=== PATIENT | female | born 1955 | race African-American/Black ===

== ENCOUNTER → 2017-02-09 | Outpatient (CLI) | payer MEDICARE, OTHER ==
[~2017-02-09] MED LIST: AMLO5TAB4 PO; BENA20TA48 PO; CANA100T PO; COSO10 BOTH EYES; ERGO500014 PO; EZET10TA3 PO; FOLI-49 PO; HYDR25TA6 PO; IBUP-1542 PO; METF500T4 PO; REPA2TAB6 PO; SITA100T8 PO; TRAV2.5D BOTH EYES
== END | disposition home or self-care (01) ==
LOC: CRE 12:27
PROVIDERS: ATTEND Internal Medicine Cardiovascular Disease
DX: I50.22 Chronic systolic (congestive) heart failure (principal)
CPT/HCPCS: 93797

== ENCOUNTER 2017-04-11 09:32 | Observation (INO) | payer MEDICARE, OTHER ==
[~2017-04-11] VITALS: Ht 182.9 cm; Wt 97.9 kg
[2017-04-11] MEDS ORDERED: SOD CHLORIDE 0.9% 500 ML IV STA (12:10)
[2017-04-11 12:46] LABS: BASOPHILS % 0.5 % (0.0-2.0); EOSINOPHILS # 0.1 10^3/ul (0.0-0.5); EOSINOPHILS % 1.7 % (0.0-7.0); HEMATOCRIT 39.2 % (37.0-47.0); HEMOGLOBIN 12.9 g/dl (12.0-16.0); LYMPHOCYTES # 2.4 10^3/ul (0.8-2.9); LYMPHOCYTES % 37.3 % (15.0-51.0); MEAN CORPUSCULAR HEMOGLOBIN 27.5 pg (29.0-33.0); MEAN CORPUSCULAR HGB CONC 32.9 g/dl (32.0-37.0); MEAN CORPUSCULAR VOLUME 83.6 fl (82.0-101.0); MONOCYTE # 0.4 10^3/ul (0.3-0.9); MONOCYTES % 6.8 % (0.0-11.0); NEUTROPHIL # 3.4 10^3/ul (1.6-7.5); NEUTROPHILS % 53.4 % (39.0-77.0); PLATELET COUNT 222 10^3/UL (140-415); RED BLOOD COUNT 4.69 10^6/ul (4.20-5.40); RED CELL DISTRIBUTION WIDTH 14.4 % (11.5-14.5); WHITE BLOOD COUNT 6.3 10^3/ul (4.8-10.8)
--- NOTE | 2017-04-11 12:53 | ERD ---
ER Documentation Chief Complaint Chief Complaint Pt with CP, dizzyness and nausea since this morning. HPI This is a 62-year-old female history of hypertension, idiopathic cardiomyopathy with EF of 30% who presents to the emergency room with dizziness and chest pain. The patient states that over the weekend she started to take a lower dose of her carvedilol. The patient has had some mild lightheadedness over the weekend. Today she started out mild left-sided chest discomfort that was pressure-like and completely alleviated now. Mild nausea but no vomiting. She denies exertional symptoms. No fevers or chills, headache or slurred speech. ROS All systems reviewed and are negative except as per history of present illness. Medications Home Meds Reported Medications Spironolactone* (Aldactone*) 25 Mg Tablet, 12.5 MG PO BID, #60 TAB 04/11/17 Carvedilol* (Carvedilol*) 12.5 Mg Tablet, 12.5 MG PO QPM, #60 TAB 04/11/17 Carvedilol* (Carvedilol*) 12.5 Mg Tablet, 25 MG PO QAM, #60 TAB 04/11/17 Multivits-Min/Iron/FA/Lutein (Centrum Silver Women Tablet) 1 Each Tablet, 1 EACH PO DAILY, TAB 04/11/17 Aspirin (Low Dose Aspirin) 81 Mg Tablet.dr, 81 MG PO DAILY, #30 TAB 04/11/17 Repaglinide* (Repaglinide*) 2 Mg Tablet, 6 MG PO AC MEALS, TAB 04/11/17 Metformin Hcl* (Metformin Hcl*) 1,000 Mg Tablet, 1000 MG PO BID WITH MEALS, #30 TAB 04/11/17 Ascorbic Acid* (Vitamin C*) 500 Mg Capsule.sa, 1000 MG PO DAILY, CAP 04/11/17 Simvastatin* (Zocor*) 10 Mg Tablet, 10 MG PO QHS, #30 TAB 04/11/17 Cholecalciferol* (Vitamin D3*) 1,000 Unit Tablet, 2000 UNIT PO BID, TAB 04/11/17 Canagliflozin (Invokana) 300 Mg Tablet, 300 MG PO DAILY, TAB 04/11/17 Sitagliptin* (Januvia*) 100 Mg Tablet, 100 MG PO DAILY, TAB 11/02/14 Travoprost* (Travatan Z*) 2.5 Ml Drops, 1 DROP BOTH EYES HS, EA 11/02/14 Dorzolamide-Timolol* (Cosopt*) 2%-0.5% Soln, 1 DROP BOTH EYES BID, BOTTLE 11/02/14 Benazepril Hcl* (Benazepril Hcl*) 20 Mg Tablet, 20 MG PO DAILY, TAB 11/02/14 Folic Acid* (Folic Acid*) 1 Mg Tablet, 1 MG PO DAILY, TAB 11/02/14 Ezetimibe* (Zetia*) 10 Mg Tablet, 10 MG PO DAILY, TAB 11/02/14 Discontinued Reported Medications Amlodipine Besylate* (Norvasc*) 5 Mg Tablet, 5 MG PO DAILY, TAB 11/02/14 Hydrochlorothiazide* (Hydrochlorothiazide*) 25 Mg Tab, 25 MG PO DAILY, TAB 11/02/14 Ergocalciferol* (Drisdol* (Vitamin D2)) 50,000 Unit Capsule, 10259 UNIT PO Q7D, CAP 11/02/14 Metformin Hcl* (Metformin Hcl*) 500 Mg Tablet, 500 MG PO BID, TAB 11/02/14 Canagliflozin (Invokana) 100 Mg Tablet, 100 MG PO DAILY, TAB 11/02/14 Repaglinide* (Prandin*) 2 Mg Tablet, 2 MG PO TID, TAB 11/02/14 Discontinued Scripts Ibuprofen* (Motrin*) 600 Mg Tab, 600 MG PO Q6, #15 TAB Prov:ANAND DE JESUS MD 11/02/14 Allergies Allergies: Coded Allergies: No Known Allergies (Verified Allergy, Mild, 04/11/17) PMhx/Soc History of Surgery: Yes (C SECTION , APPY ) Anesthesia Reaction: No Hx Neurological Disorder: No Hx Respiratory Disorders: No Hx Cardiac Disorders: No Hx Miscellaneous Medical Probl: Yes (RHUEMATOID ARTHRITIS, HTN, GLAUCOMA) Hx Alcohol Use: No Hx Substance Use: No Hx Tobacco Use: No Smoking Status: Never smoker FmHx Family History: No diabetes Physical Exam Vitals Vital Signs Date Time Temp Pulse Resp B/P Pulse Ox O2 Delivery O2 Flow Rate FiO2 04/11/17 09:39 98.4 51 18 140/78 99 Physical Exam General: Well developed, well nourished, no acute distress Head: Normocephalic, atraumatic. Eyes: Pupils equally reactive, EOM intact ENT: Moist mucous membranes Neck: Supple, no lymphadenopathy Respiratory: Lungs clear bilaterally, no distress Cardiovascular: RRR, no murmurs, rubs, or gallops Abdominal: Soft, non-tender, non-distended, no peritoneal signs : Deferred MSK: No edema, no unilateral swelling, 5/5 strength Neurologic: Alert and oriented, moving all extremities, normal speech, no focal weakness, no cerebellar signs Skin: No rash Psych: Normal mood Result Diagram: 04/11/17 1230 04/11/17 1230 Results 24 hrs Laboratory Tests Test 04/11/17 12:30 White Blood Count 6.310^3/ul Red Blood Count 4.6910^6/ul Hemoglobin 12.9g/dl Hematocrit 39.2% Mean Corpuscular Volume 83.6fl Mean Corpuscular Hemoglobin 27.5pg Mean Corpuscular Hemoglobin Concent 32.9g/dl Red Cell Distribution Width 14.4% Platelet Count 25767^3/UL Mean Platelet Volume 11.0fl Neutrophils % 53.4% Lymphocytes % 37.3% Monocytes % 6.8% Eosinophils % 1.7% Basophils % 0.5% Nucleated Red Blood Cells % 0.0/100WBC Neutrophils # 3.410^3/ul Lymphocytes # 2.410^3/ul Monocytes # 0.410^3/ul Eosinophils # 0.110^3/ul Basophils # 0.010^3/ul Nucleated Red Blood Cells # 0.010^3/ul Sodium Level 144mmol/L Potassium Level 4.7mmol/L Chloride Level 105mmol/L Carbon Dioxide Level 28mmol/L Anion Gap 16 Blood Urea Nitrogen 15mg/dl Creatinine 0.92mg/dl Glucose Level 185mg/dl Calcium Level 10.1mg/dl Magnesium Level 2.0mg/dl Troponin I < 0.012ng/ml Current Medications Medications (Trade) Dose Ordered Sig/Matilda Route PRN Reason Start Time Stop Time Status Last Admin Dose Admin Sodium Chloride (NS) 500 ml @ 500 mls/hr Q1H STAT IV 04/11/17 12:10 04/11/17 13:09 DC 04/11/17 12:40 Aspirin (Aspirin) 324 mg ONCE ONCE PO 04/11/17 14:30 04/11/17 14:31 DC 04/11/17 14:52 Ondansetron HCl (Zofran Inj) 4 mg ER BRIDGE PRN IV NAUSEA AND/OR VOMITING 04/11/17 15:30 04/12/17 15:29 Acetaminophen (Tylenol Tab) 650 mg ER BRIDGE PRN PO MILD PAIN/FEVER 04/11/17 15:30 04/12/17 15:29 Procedures/MDM EKG, MONITORS, & DIAGNOSTIC IMAGING: EKG: I reviewed and interpreted a 12-lead EKG. Rhythm: Normal sinus rhythm Ectopy: Frequent PVCs Intervals: No abnormalities ST segments: No elevations or depressions T waves: No contiguous inversions Repeat EKG: EKG: I reviewed and interpreted a 12-lead EKG. Rhythm: Normal sinus rhythm Ectopy: frequent PVCs Intervals: No abnormalities ST segments: No elevations or depressions T waves: No contiguous inversions Chest x-ray: I reviewed and interpreted a 1 view of the chest Mediastinum: No enlargement Cardiac silhouette: No cardiomegaly Airspace: Clear lung briceño bilaterally without evidence of pneumothorax Bones: No evidence of fracture LAB INTERPRETATION: Negative troponin MEDICAL DECISION MAKING: The patient's history, physical exam and clinical presentation is concerning for possible cardiogenic etiology and acute coronary syndrome versus high-risk chest pain in the setting of idiopathic heart myopathy Based on the patient's clinical exam and history and risk factors, I have a much lower clinical concern for pulmonary embolism, acute aortic dissection, pneumothorax, pneumonia, cardiac tamponade HEART Score: 4 MACE Rate: Upwards of 16.6% Shared Decision Making: We had a conversation regarding risk stratification, MACE rate, and the risks, benefits, alternatives of disposition planning options. Disposition planning: Strong recommendation for inpatient hospitalization given high risk criteria ER COURSE: The patient was given aspirin. She remains asymptomatic. Her laboratory testing and diagnostic imaging is unrevealing. It does appear the patient had an angiogram within the past year however given the patient's history of cardiomyopathy I believe she is high risk and would benefit from inpatient hospitalization to rule out ACS and close monitoring. The patient does have trigeminy on EKG and monitor. I kept the patient and/or family informed of laboratory and diagnostic imaging results throughout the emergency room course. DISPOSITION PLAN: Telemetry admission CONSULTATION: Accepting care team and consultations: I discussed the current laboratory data, diagnostic imaging and emergency care provided. Admitting team: Dr. Mullen Admitting team indication: Insurance directed Consulting services: Cardiology Dr. Marcelino Departure Diagnosis: Primary Impression: Chest pain Chest pain type: unspecified Qualified Code: R07.9 - Chest pain, unspecified type Additional Impression: Trigeminy Condition: Stable ANN SANTOYO MD Apr 11, 2017 12:53
--- NOTE | 2017-04-11 12:55 | RADRPT ---
PROCEDURE: XR Chest. CLINICAL INDICATION: Shortness of breath TECHNIQUE: Single portable view of the chest was obtained COMPARISON: [facility] PORT CHEST 06/12/2009 FINDINGS: The trachea is midline. The cardiac silhouette and pulmonary vascularity are within normal limits. T he lungs are clear. The costophrenic angles are sharp. IMPRESSION: 1. No evidence of acute cardiopulmonary disease. RPTAT: AAPP Physician Omega Date Time Electronically viewed and signed by Cheryl Rodgers Physician on 04/11/2017 12:54 JL/
[2017-04-11] MEDS ORDERED: CANA300T PO (13:10)
[2017-04-11] MEDS ORDERED: CHOL100062 PO (13:11)
[2017-04-11] MEDS ORDERED: SIMV10TA PO (13:11)
[2017-04-11] MEDS ORDERED: ASCO500C7 PO (13:11)
[2017-04-11 13:12] LABS: ANION GAP 16 (8-16); BLOOD UREA NITROGEN 15 mg/dl (7-20); CALCIUM 10.1 mg/dl (8.4-10.2); CARBON DIOXIDE 28 mmol/L (21-31); CHLORIDE 105 mmol/L (97-110); CREATININE 0.92 mg/dl (0.44-1.00); GLUCOSE 185 mg/dl (70-220); POTASSIUM 4.7 mmol/L (3.5-5.1); SODIUM 144 mmol/L (135-144)
[2017-04-11] MEDS ORDERED: METF1000 PO (13:12)
[2017-04-11] MEDS ORDERED: ASPI-664 PO (13:13)
[2017-04-11] MEDS ORDERED: REPA2TAB8 PO (13:13)
[2017-04-11] MEDS ORDERED: MULT-853 PO (13:14)
[2017-04-11] MEDS ORDERED: CARV12.579 PO ×2 (13:15)
[2017-04-11] MEDS ORDERED: SPIR25TA PO (13:16)
[2017-04-11 13:24] LABS: TROPONIN-I < 0.012 ng/ml (0.00-0.12)
[2017-04-11] MEDS ORDERED: ASPIRIN 81 MG TAB PO ONE (14:30)
[2017-04-11] MEDS ORDERED: ONDANSETRON 4 MG INJ IV PRN (15:30)
[2017-04-11] MEDS ORDERED: ACETAMINOPHEN 325 MG TAB PO PRN (15:30)
--- NOTE | 2017-04-11 19:00 | CONS ---
Date/Time of Note Date/Time of Note DATE: 04/11/17 TIME: 18:47 Assessment/Plan Assessment/Plan Chief Complaint/Hosp Course 62 yobf w/ NICM (EF 30%), DM, htn, RA and other issues who presented with "dizziness' and chest pain. Her "dizziness' is more c/w vertigo. Since it worsens with motion, it may be BPPV. Pt feels it is related to her new formulation of carvedilol. Can have pharmacy check her pills to make sure they are the right dose (and would return to prior formulation). Pt's HR and bp have been stable since she was her. She felt "dizzy" again when she sat up. Her chest pain may be related to her anxiety /frustration. No ischemic ST changes on ECG. In addition, pt had a negative cardiac cath earlier this year ( at [facility]). Pt does not appear to be in CHF on exam. (Will defer tx and eval of vertigo to the medicine team.) Would continue cardiac meds (but return to prior dose/formulation of coreg). Problems: Consultation Date/Type/Reason Admit Date/Time Date of Consultation: Apr 11, 2017 Type of Consultation: Cardiology Reason for Consultation chest pain, "dizziness" Hx of Present Illness 62 yobf w/ hx of NICM (EF 30%), DM, htn, RA and other issues who presented with "dizziness" since last Tuesday and then chest pain today. Pt feels that it started after she took a new forumlation of carvedilol. She states she normally takes 25mg qpm and 12mg in the am. She was given a Rx that was filled with a generic form of the carevedilol (6.25mg bid). She said that after taking it on Tuesday she felt "dizziness", which she states is more like a sense of motion or imbalance (vertigo) than lightheadiness. It was intermittent all weekend. She states she was in [place] this weekend. Today, she became frustrated with the new meds and developed chest pain. She went to the [facility] ER. ECG reveals sinus rhythm with trigeminy (no ischemic ST changes). SBP is 120- 130s. HR is currently in the 90s. Pt denies ringing in her ears or f/c. Her chest pain has resolved (as she relaxed). She had the "dizziness' again when she sat up. Pt had an extensive evaluation of her cardiomyopathy earlier this year. She had a coronary angiogram (at [facility]) which was negative for CAD. She also had a cardiac MRI (to r/o non-compaction). Prior to this admission, she was doing well on meds. Past Medical History Non-ischemic cardiomyopathy (EF 30%) Social History Smoking Status: Never smoker Exam/Review of Systems Vital Signs Vitals Vital Signs Date Time Temp Pulse Resp B/P Pulse Ox O2 Delivery O2 Flow Rate FiO2 04/11/17 17:34 90 18 132/57 98 Room Air 04/11/17 09:39 98.4 Exam Constitutional: alert, other (fatigue), No distress Head: normocephalic Eyes: EOMI, nl sclera Neck: supple, No jvd Respiratory: clear to auscultation Cardiovascular: regular rate and rhythm, No systolic murmur Gastrointestinal: soft Extremities: No edema Neurological: nl mental status, nl speech Results Result Diagram: 04/11/17 1230 04/11/17 1230 Results 24 hrs Laboratory Tests Test 04/11/17 12:30 White Blood Count 6.3 Red Blood Count 4.69 Hemoglobin 12.9 Hematocrit 39.2 Mean Corpuscular Volume 83.6 Mean Corpuscular Hemoglobin 27.5 L Mean Corpuscular Hemoglobin Concent 32.9 Red Cell Distribution Width 14.4 Platelet Count 222 Mean Platelet Volume 11.0 H Neutrophils % 53.4 Lymphocytes % 37.3 Monocytes % 6.8 Eosinophils % 1.7 Basophils % 0.5 Nucleated Red Blood Cells % 0.0 Neutrophils # 3.4 Lymphocytes # 2.4 Monocytes # 0.4 Eosinophils # 0.1 Basophils # 0.0 Nucleated Red Blood Cells # 0.0 Sodium Level 144 Potassium Level 4.7 Chloride Level 105 Carbon Dioxide Level 28 Anion Gap 16 Blood Urea Nitrogen 15 Creatinine 0.92 Glucose Level 185 Calcium Level 10.1 Magnesium Level 2.0 Troponin I < 0.012 Imaging Free Text/Dictation sinus rhythm w/ trigeminy (ventricular) with avg HR 97, no ischemic ST changes CAT ASCENCIO Apr 11, 2017 19:00
[2017-04-11 19:16] VITALS: PULSE 95
[2017-04-11 19:24] VITALS: PULSE 97
[2017-04-11 19:28] VITALS: BP 144/78; RESP 18
[2017-04-11 20:00] VITALS: PULSE 74
[2017-04-11 20:58] VITALS: PULSE 84
[2017-04-11 21:31] LABS: CREATINE KINASE 186 IU/L (23-200)
[2017-04-11 21:48] LABS: TROPONIN-I < 0.012 ng/ml (0.00-0.12)
[2017-04-11 22:21] VITALS: Ht 182.9 cm; Wt 97.9 kg
[2017-04-11 23:30] VITALS: BP 114/62; RESP 18
[2017-04-11] MEDS: SPIRONOLACTONE 25 MG TAB PO SCH (23:58)
[2017-04-12] VITALS (12 sets, daily range): BP systolic 103–139; BP diastolic 58–84; PULSE 53–142; RESP 18–21
[2017-04-12] MEDS: INSULIN ASPART [NOVOLOG] 3 ML PEN SC SCH ×4 (00:18→22:00)
[2017-04-12 01:46] LABS: CK-MB 0.92 ng/ml (0.0-2.4); TROPONIN-I 0.015 ng/ml (0.00-0.12)
[2017-04-12] MEDS: ACCU-CHEK XX SCH (02:58)
[2017-04-12 07:45] LABS: BASOPHILS % 0.4 % (0.0-2.0); EOSINOPHILS # 0.1 10^3/ul (0.0-0.5); EOSINOPHILS % 2.9 % (0.0-7.0); HEMATOCRIT 34.2 % (37.0-47.0); HEMOGLOBIN 11.4 g/dl (12.0-16.0); LYMPHOCYTES % 43.1 % (15.0-51.0); MEAN CORPUSCULAR HEMOGLOBIN 27.7 pg (29.0-33.0); MEAN CORPUSCULAR HGB CONC 33.3 g/dl (32.0-37.0); MEAN PLATELET VOLUME 11.6 fl (7.4-10.4); MONOCYTE # 0.4 10^3/ul (0.3-0.9); MONOCYTES % 8.8 % (0.0-11.0); NEUTROPHILS % 44.6 % (39.0-77.0); PLATELET COUNT 206 10^3/UL (140-415); RED BLOOD COUNT 4.12 10^6/ul (4.20-5.40); RED CELL DISTRIBUTION WIDTH 14.2 % (11.5-14.5); WHITE BLOOD COUNT 4.5 10^3/ul (4.8-10.8)
[2017-04-12 08:05] LABS: ALBUMIN 3.6 g/dl (3.3-4.9); ALBUMIN/GLOBULIN RATIO 1.05; BILIRUBIN,INDIRECT 0.4 mg/dl (0-1.1); BILIRUBIN,TOTAL 0.4 mg/dl (0.2-1.3); CALCIUM 9.7 mg/dl (8.4-10.2); CHOL/HDL RATIO 3.6 RATIO; CREATININE 0.87 mg/dl (0.44-1.00); POTASSIUM 4.1 mmol/L (3.5-5.1)
[2017-04-12 08:36] LABS: THYROID STIMULATING HORMONE 1.44 MIU/L (0.465-4.680)
[2017-04-12] MEDS: FOLIC ACID 1 MG TAB PO SCH (08:54)
[2017-04-12] MEDS: SPIRONOLACTONE 25 MG TAB PO SCH ×2 (08:54→21:19)
[2017-04-12] MEDS: BENAZEPRIL 20 MG TAB PO SCH (08:54)
[2017-04-12] MEDS: CHOLECALCIFEROL 1,000 UNIT TAB PO SCH ×2 (08:54→21:18)
[2017-04-12] MEDS: ASCORBIC ACID 500 MG TAB PO SCH (08:55)
[2017-04-12] MEDS: EZETIMIBE 10 MG TAB PO SCH (08:55)
[2017-04-12] MEDS: ASPIRIN (EC) 81 MG TAB PO SCH (08:55)
[2017-04-12] MEDS: DORZOLAMIDE/TIMOLOL 10 ML OPH BOTH EYES SCH ×2 (08:57→21:20)
--- NOTE | 2017-04-12 14:02 | PN ---
Date/Time of Note Date/Time of Note DATE: 04/12/17 TIME: 13:55 Assessment/Plan VTE Prophylaxis VTE Prophylaxis Intervention: LMWH Lines/Catheters IV Catheter Type (from Rust): Saline Lock Urinary Cath still in place: No Assessment/Plan Assessment/Plan A: chest pain- resolved, troponins negative, recent negative cath dizziness- ?vertigo, no focal neuro findings CM- resumed coreg 6.25mg bid, pt tolerating DM- oral meds held, on SS P: await identification of new prescription med (coreg) MRI brain with contrast cont current rx Subjective 24 Hr Interval Summary Free Text/Dictation Pt feeling better. Still some dizziness with sitting up or standing, like out of balance. No ROMERO, cp, sob, focal neuro sx. Exam/Review of Systems Vital Signs Vitals Vital Signs Date Time Temp Pulse Resp B/P Pulse Ox O2 Delivery O2 Flow Rate FiO2 04/12/17 12:06 74 04/12/17 11:50 97.9 18 139/84 98 04/11/17 17:34 Room Air Intake and Output 04/11/17 04/11/17 04/12/17 14:59 22:59 06:59 Intake Total 600 ml Balance 600 ml Exam gen- nad, nontoxic lungs- CTA heart- trigeminy abd- +BS, soft, nontender. ext- tr edema neuro- A&Ox3, nonfocal. Results Result Diagram: 04/12/1762704/12/17627 Results 24 hrs Laboratory Tests Test 04/11/17 20:00 04/12/17 00:02 04/12/17 00:30 04/12/17 02:44 Creatine Kinase 186 165 Creatine Kinase Index 0.5 0.6 Creatinine Kinase MB (Mass) 0.90 0.92 Troponin I < 0.012 0.015 Bedside Glucose 254 H 142 Test 04/12/17 06:28 04/12/17 08:52 04/12/17 11:27 White Blood Count 4.5 #L Red Blood Count 4.12 L Hemoglobin 11.4 L Hematocrit 34.2 L Mean Corpuscular Volume 83.0 Mean Corpuscular Hemoglobin 27.7 L Mean Corpuscular Hemoglobin Concent 33.3 Red Cell Distribution Width 14.2 Platelet Count 206 Mean Platelet Volume 11.6 H Neutrophils % 44.6 Lymphocytes % 43.1 Monocytes % 8.8 Eosinophils % 2.9 Basophils % 0.4 Nucleated Red Blood Cells % 0.0 Neutrophils # 2.0 Lymphocytes # 2.0 Monocytes # 0.4 Eosinophils # 0.1 Basophils # 0.0 Nucleated Red Blood Cells # 0.0 Sodium Level 141 Potassium Level 4.1 Chloride Level 106 Carbon Dioxide Level 26 Anion Gap 13 Blood Urea Nitrogen 14 Creatinine 0.87 Glucose Level 154 Hemoglobin A1c 7.3 H Calcium Level 9.7 Total Bilirubin 0.4 Direct Bilirubin 0.00 Indirect Bilirubin 0.4 Aspartate Amino Transf (AST/SGOT) 23 Alanine Aminotransferase (ALT/SGPT) 32 Alkaline Phosphatase 50 Troponin I < 0.012 Total Protein 7.0 Albumin 3.6 Globulin 3.40 H Albumin/Globulin Ratio 1.05 Triglycerides Level 107 Cholesterol Level 124 LDL Cholesterol, Calculated 69 HDL Cholesterol 34 L Cholesterol/HDL Ratio 3.6 Thyroid Stimulating Hormone (TSH) 1.440 Bedside Glucose 170 168 Medications Medications Current Medications Ascorbic Acid (Vitamin C) 1,000 mg DAILY PO Last administered on 04/12/17 08: 55; Admin Dose 1,000 MG; Start 04/12/17 at 09:00 Aspirin (Halfprin) 81 mg DAILY PO Last administered on 04/12/17 08:55; Admin Dose 81 MG; Start 04/12/17 at 09:00 Benazepril HCl (Lotensin) 20 mg DAILY PO Last administered on 04/12/17 08:54 ; Admin Dose 20 MG; Start 04/12/17 at 09:00 Cholecalciferol (Vitamin D) 2,000 unit BID PO Last administered on 04/12/17 08:54; Admin Dose 2,000 UNIT; Start 04/12/17 at 09:00 Dorzolamide/ Timolol (Cosopt) 1 drop BID BOTH EYES Last administered on 08:57; Admin Dose 1 DROP; Start 04/12/17 at 09:00 EZETIMIBE (Zetia) 10 mg DAILY PO Last administered on 04/12/17 08:55; Admin Dose 10 MG; Start 04/12/17 at 09:00 Folic Acid (Folic Acid) 1 mg DAILY PO Last administered on 04/12/17 08:54; Admin Dose 1 MG; Start 04/12/17 at 09:00 Spironolactone (Aldactone) 12.5 mg BID PO Last administered on 04/12/17 08:54 ; Admin Dose 12.5 MG; Start 04/11/17 at 23:00 Latanoprost (Xalatan) 1 drop HS BOTH EYES ; Start 04/12/17 at 21:00 Atorvastatin Calcium (Lipitor) 5 mg QHS PO ; Start 04/12/17 at 21:00 Diagnostic Test (Pha) (Accu-Chek) 1 ea 02 XX Last administered on 04/12/17 02 :58; Admin Dose 1 EA; Start 04/12/17 at 02:00 Patient Own Medication 2 ea BID PO ; Start 04/12/17 at 21:00 POLLO GUERRA MD Apr 12, 2017 14:02
--- NOTE | 2017-04-12 14:21 | CONS ---
Date/Time of Note Date/Time of Note DATE: 04/12/17 TIME: 14:16 Assessment/Plan Assessment/Plan Additional Assessment/Plan # Dizziness- possible orthostatic changes vs BPV however pt believes it is secondary to her change in carvedilol pill # DCM with chronic stable systolic CHF HFrEF; pt undergoing medication titration and reassessment to determine need for ICD # HTN # HL # Drop in H/H on today's labs >> consider recheck Hgb >> check orthostatic vitals >> resume higher dose of carvedilol if tolerated >> continue on remainder of meds >> CHF education >> continue CHF treatment with primary cardiology including possible ICD implantation if EF remains low Consultation Date/Type/Reason Admit Date/Time Apr 11, 2017 at 15:16 Initial Consult Date 04/11/17 Type of Consultation: Cardiology 24 HR Interval Summary Free Text/Dictation Today pt is doing well without sig't syx. She did have 3 beat VT last night. Frequent PVCs noted but no syx. No CP or SOB. Constitutional: no complaints Exam/Review of Systems Vital Signs Vitals Vital Signs Date Time Temp Pulse Resp B/P Pulse Ox O2 Delivery O2 Flow Rate FiO2 04/12/17 12:06 74 04/12/17 11:50 97.9 18 139/84 98 04/11/17 17:34 Room Air Intake and Output 04/11/17 04/11/17 04/12/17 15:00 23:00 07:00 Intake Total 600 ml Balance 600 ml Exam Constitutional: alert, obese, oriented Psych: nl mood/affect, no complaints Head: normocephalic Eyes: nl conjunctiva ENMT: nl external ears & nose Neck: non-tender, supple, No jvd Respiratory: clear to auscultation, normal air movement, No crackles/rales Cardiovascular: other (ectopic beats), regular rate and rhythm, No edema, No jugular venous distention (JVD) Gastrointestinal: non-tender, soft Extremities: normal pulses, No edema Skin: nl turgor Results Result Diagram: 04/12/1728 04/12/1728 Results 24 hrs Laboratory Tests Test 04/11/17 20:00 04/12/17 00:02 04/12/17 00:30 04/12/17 02:44 Creatine Kinase 186 165 Creatine Kinase Index 0.5 0.6 Creatinine Kinase MB (Mass) 0.90 0.92 Troponin I < 0.012 0.015 Bedside Glucose 254 H 142 Test 04/12/17 06:28 04/12/17 08:52 04/12/17 11:27 White Blood Count 4.5 #L Red Blood Count 4.12 L Hemoglobin 11.4 L Hematocrit 34.2 L Mean Corpuscular Volume 83.0 Mean Corpuscular Hemoglobin 27.7 L Mean Corpuscular Hemoglobin Concent 33.3 Red Cell Distribution Width 14.2 Platelet Count 206 Mean Platelet Volume 11.6 H Neutrophils % 44.6 Lymphocytes % 43.1 Monocytes % 8.8 Eosinophils % 2.9 Basophils % 0.4 Nucleated Red Blood Cells % 0.0 Neutrophils # 2.0 Lymphocytes # 2.0 Monocytes # 0.4 Eosinophils # 0.1 Basophils # 0.0 Nucleated Red Blood Cells # 0.0 Sodium Level 141 Potassium Level 4.1 Chloride Level 106 Carbon Dioxide Level 26 Anion Gap 13 Blood Urea Nitrogen 14 Creatinine 0.87 Glucose Level 154 Hemoglobin A1c 7.3 H Calcium Level 9.7 Total Bilirubin 0.4 Direct Bilirubin 0.00 Indirect Bilirubin 0.4 Aspartate Amino Transf (AST/SGOT) 23 Alanine Aminotransferase (ALT/SGPT) 32 Alkaline Phosphatase 50 Troponin I < 0.012 Total Protein 7.0 Albumin 3.6 Globulin 3.40 H Albumin/Globulin Ratio 1.05 Triglycerides Level 107 Cholesterol Level 124 LDL Cholesterol, Calculated 69 HDL Cholesterol 34 L Cholesterol/HDL Ratio 3.6 Thyroid Stimulating Hormone (TSH) 1.440 Bedside Glucose 170 168 Medications Medications Current Medications Ascorbic Acid (Vitamin C) 1,000 mg DAILY PO Last administered on 04/12/17 08: 55; Admin Dose 1,000 MG; Start 04/12/17 at 09:00 Aspirin (Halfprin) 81 mg DAILY PO Last administered on 04/12/17 08:55; Admin Dose 81 MG; Start 04/12/17 at 09:00 Benazepril HCl (Lotensin) 20 mg DAILY PO Last administered on 04/12/17 08:54 ; Admin Dose 20 MG; Start 04/12/17 at 09:00 Cholecalciferol (Vitamin D) 2,000 unit BID PO Last administered on 04/12/17 08:54; Admin Dose 2,000 UNIT; Start 04/12/17 at 09:00 Dorzolamide/ Timolol (Cosopt) 1 drop BID BOTH EYES Last administered on 08:57; Admin Dose 1 DROP; Start 04/12/17 at 09:00 EZETIMIBE (Zetia) 10 mg DAILY PO Last administered on 04/12/17 08:55; Admin Dose 10 MG; Start 04/12/17 at 09:00 Folic Acid (Folic Acid) 1 mg DAILY PO Last administered on 04/12/17 08:54; Admin Dose 1 MG; Start 04/12/17 at 09:00 Spironolactone (Aldactone) 12.5 mg BID PO Last administered on 04/12/17 08:54 ; Admin Dose 12.5 MG; Start 04/11/17 at 23:00 Latanoprost (Xalatan) 1 drop HS BOTH EYES ; Start 04/12/17 at 21:00 Atorvastatin Calcium (Lipitor) 5 mg QHS PO ; Start 04/12/17 at 21:00 Diagnostic Test (Pha) (Accu-Chek) 1 ea 02 XX Last administered on 04/12/17 02 :58; Admin Dose 1 EA; Start 04/12/17 at 02:00 Patient Own Medication 2 ea BID PO ; Start 04/12/17 at 21:00 Enoxaparin Sodium (Lovenox) 40 mg DAILY SC ; Start 04/13/17 at 09:00 FAITH STILES MD Apr 12, 2017 14:21
--- NOTE | 2017-04-12 15:25 | HP ---
DATE OF ADMISSION: 04/11/2017 CHIEF COMPLAINT: Dizziness for 4 days and chest pain x1 day. HISTORY OF PRESENT ILLNESS: The patient is a 62-year-old black female with a history of nonischemic cardiomyopathy who complains of dizziness which she attributes to a recent change in her carvedilol which was decreased from 12.5 b.i.d. to 6.25 b.i.d. Patient states she is concerned that the medic ation she received was not carvedilol because it looks different. The patient recently filled this new prescription 4 days prior to admission and the day after she began taking the new prescription, she noticed some dizziness which she describes as being a bit out of balance when she stands up. Th keren episodes can last a few minutes, improve when she sits down. She denies any recent illnesses, c ongestion, rhinorrhea, sore throat, focal neurologic symptoms, nausea or vomiting. She has had some mild diffuse headache. On the morning of admission, the patient reported to have some left-sided c hest pain which was crampy, 2/10 severity, which began when she was moving around, getting some thin gs together at home. The patient states it resolved after she sat down, lasted the duration of a to aron of 1-2 minutes, there was no radiation, no associated symptoms. No palpitations, shortness of b reath, cough. The patient has had no further episodes of chest pain. Of note, patient did have a r ecent negative angiogram through [facility] in 10/2016. The patient presented to [facility] ER a nd is admitted for further evaluation. PAST MEDICAL HISTORY: Nonischemic cardiomyopathy, systolic congestive heart failure, diabetes, hype rtension, hyperlipidemia, rheumatoid arthritis. OPERATIONS: Appendectomy, cataracts, . MEDICATIONS: 1. Zetia 10 mg daily. 2. Simvastatin 20 mg daily. 3. Spironolactone 25 mg daily. 4. Aspirin 81 mg daily. 5. Folic acid 1 mg daily. 6. Amlodipine 5 mg daily. 7. Benazepril 20 mg daily. 8. Januvia 100 mg daily. 9. Metformin 1000 mg b.i.d. 10. Travatan eyedrops. 11. Dorzolamide. 12. Timolol eyedrops. 13. Invokana 300 mg daily. ALLERGIES: PATIENT HAS NO KNOWN DRUG ALLERGIES. SOCIAL HISTORY: The patient denies any tobacco or alcohol use. She is single. She is a caregiver. FAMILY HISTORY: Father at 60 from a CVA. Mother at 56 from diabetes complication s. The patient had 6 brothers, 4 are with heart disease and diabetes. Two brothers, shayne simms who have diabetes. The patient had 2 sisters who are from cardiac causes. The patient h as 2 sons and 2 daughters who are alive and well. REVIEW OF SYSTEMS: GENERAL: The patient denies any fever, chills, night sweats, or other general complaints. HEENT: The patient does have some headache as noted in HPI. Denies any congestion, rhinorrhea, sor e throat, tinnitus, hearing loss or other HEENT complaints. RESPIRATORY: The patient denies any cough, wheeze, shortness of breath or other respiratory complai nts. CARDIOVASCULAR: As noted in HPI. GASTROINTESTINAL: The patient denies any abdominal pain, nausea, vomiting, bright red blood per rec willy, melena or other GI symptoms. GENITOURINARY: The patient denies any dysuria, frequency or other symptoms. NEUROLOGIC: The patient denies any numbness, tingling, weakness or focal neurologic symptoms. She does have dizziness as noted in the HPI. PHYSICAL EXAMINATION: On admission: VITAL SIGNS: Temperature 98.4, pulse 95, blood pressure 126/57, pulse oximetry 98%. GENERAL APPEARANCE: This is a well-developed, well-nourished black female in no acute distress. Sh e appears nontoxic. HEENT: Normocephalic, atraumatic. Sclerae anicteric. TMs are clear. Oropharynx is clear. NECK: Supple, no adenopathy, no bruits. LUNGS: Clear to auscultation. CARDIAC: Regular rate and rhythm with frequent PVCs. ABDOMEN: Bowel sounds are present. Abdomen is soft, nontender, nondistended. EXTREMITIES: Without cyanosis or clubbing. There is trace edema. NEUROLOGIC: The patient is alert and oriented x3 with no focal neurologic findings. DATA: EKG is sinus rhythm at 89 with frequent PVCs. Chest x-ray, no acute disease. White count 6. 3, hemoglobin 12.9, platelets 222. Sodium is 144, potassium 4.7, chloride 105, bicarbonate 28, BUN 15, creatinine 0.92, glucose 185, magnesium 2. Troponin less than 0.012. IMPRESSION: 1. Chest pain. The patient with brief episode, now resolved. The patient with recent catheterizat ion negative at [facility]. Initial troponins negative. 2. Dizziness consistent with possibly vertigo. The patient with no focal neurologic findings, some mild headache, but no other focal neurologic findings. 3. Cardiomyopathy. 4. Diabetes. PLAN: Admit to telemetry. Cardiology evaluation. Serial troponins. We will have pharmacy check t o see and determine accuracy of new medication patient started. Will continue on Carvedilol 6.25 b. i.d. for now. A sliding scale of insulin. Check a lipid panel, thyroid, glycohemoglobin. Dictated By: POLLO HARP/DAVID Conf#: [id number] DID#: [id number]
--- NOTE | 2017-04-12 18:56 | RADRPT ---
PROCEDURE: MRI Brain and IACs with and without contrast. CLINICAL INDICATION: Dizziness. TECHNIQUE: An MRI of the brain was performed on a GE short bore 1.5 maris scanner utilizing the fo llowing sequences: Sagittal T1 weighted, axial T2 weighted, axial diffusion weighted (EPI technique [id number]), axial ADC mapping, and post contrast axial T1 weighted, and axial FLAIR. Additionally, thi n section imaging through the internal auditory canals was performed utilizing the following sequenc es: 3D volume high resolution T2 weighted axial, and post contrast axial and coronal T1 weighted im ages. 10 cc Magnevist was given intravenously without complication. COMPARISON: Brain CT 11/02/2014. FINDINGS: MRI BRAIN: No diffusion weighted abnormalities are seen to suggest the presence of acute ischemia or recent inf arct. There is no intracranial hemorrhage, mass effect, or midline shift. No extra-axial fluid col lection is seen. The ventricles and sulci are minimally enlarged indicative of volume loss. Partial ly empty sella turcica is noted. There are minimal scattered foci of T2 and FLAIR hyperintensity in the white matter, which are nonsp ecific in etiology but likely reflect chronic small vessel ischemic changes. The gradient echo imag es reveal no areas of susceptibility artifact to suggest blood degradation products or abnormal calc ification. No abnormal intraparenchymal, meningeal or ependymal enhancement is seen. No abnormal intracranial vascular flow voids are noted. The pituitary and sella reveal no abnormali ty. The suprasellar cistern is clear. The visualized paranasal sinuses demonstrate trace scattered mucosal thickening. The mastoid air cells are clear. There is thinning of right lens indicative of prior lens replacement. MRI IACS: The internal auditory canals are bilaterally symmetric and normal in appearance. The seventh and ei ghth cranial nerve complexes appear normal with no evidence of abnormal enhancement on the postcontr ast images. No cerebellar pontine angle mass lesion is detected. The membranous portions of the in ner ear structures are bilaterally symmetric and normal in appearance. The mastoid air cells are cl ear. IMPRESSION: 1. No acute intracranial infarction, hemorrhage or mass. No intracranial enhancing abnormality. 2. Minimal chronic small vessel ischemic changes and minimal generalized cerebral volume loss. 3. Partially empty sella turcica. 4. Contrast enhanced MRI of the internal auditory canals reveals no abnormal enhancement to suggest acoustic/vestibular schwannoma, neuritis or labyrinthitis. RPTAT: HH .Anali Bueno MD, MD Date Time Electronically viewed and signed by .Anali Bueno MD, MD on 04/12/2017 18:56 .N/
[2017-04-12] MEDS ORDERED: ATORVASTATIN 10 MG TAB PO SCH (21:00)
[2017-04-12] MEDS ORDERED: LATANOPROST 0.005% 2.5 ML OPH BOTH EYES SCH (21:00)
[2017-04-12] MEDS: COREG 3.125 MG PO SCH (21:20)
[2017-04-13] VITALS (11 sets, daily range): BP systolic 114–132; BP diastolic 60–76; PULSE 71–90; RESP 18–20
[2017-04-13] MEDS: ACCU-CHEK XX SCH (02:09)
[2017-04-13] MEDS: INSULIN ASPART [NOVOLOG] 3 ML PEN SC SCH ×3 (08:08→17:52)
[2017-04-13] MEDS: DORZOLAMIDE/TIMOLOL 10 ML OPH BOTH EYES SCH (08:25)
[2017-04-13] MEDS: EZETIMIBE 10 MG TAB PO SCH (08:25)
[2017-04-13] MEDS: CHOLECALCIFEROL 1,000 UNIT TAB PO SCH (08:26)
[2017-04-13] MEDS: ASCORBIC ACID 500 MG TAB PO SCH (08:26)
[2017-04-13] MEDS: SPIRONOLACTONE 25 MG TAB PO SCH (08:26)
[2017-04-13] MEDS: FOLIC ACID 1 MG TAB PO SCH (08:27)
[2017-04-13] MEDS: ASPIRIN (EC) 81 MG TAB PO SCH (08:27)
[2017-04-13] MEDS: BENAZEPRIL 20 MG TAB PO SCH (08:27)
[2017-04-13] MEDS: COREG 3.125 MG PO SCH (08:28)
[2017-04-13] MEDS ORDERED: ENOXAPARIN 40 MG/0.4 ML SYG SC SCH (09:00)
[2017-04-13 09:15] LABS: BASOPHILS % 0.4 % (0.0-2.0); EOSINOPHILS # 0.1 10^3/ul (0.0-0.5); EOSINOPHILS % 2.4 % (0.0-7.0); HEMATOCRIT 34.4 % (37.0-47.0); HEMOGLOBIN 11.8 g/dl (12.0-16.0); LYMPHOCYTES # 2.1 10^3/ul (0.8-2.9); LYMPHOCYTES % 44.8 % (15.0-51.0); MEAN CORPUSCULAR HEMOGLOBIN 27.9 pg (29.0-33.0); MEAN CORPUSCULAR HGB CONC 34.3 g/dl (32.0-37.0); MEAN CORPUSCULAR VOLUME 81.3 fl (82.0-101.0); MONOCYTE # 0.3 10^3/ul (0.3-0.9); MONOCYTES % 7.2 % (0.0-11.0); NEUTROPHIL # 2.1 10^3/ul (1.6-7.5); NEUTROPHILS % 44.8 % (39.0-77.0); PLATELET COUNT 199 10^3/UL (140-415); RED BLOOD COUNT 4.23 10^6/ul (4.20-5.40); RED CELL DISTRIBUTION WIDTH 14.3 % (11.5-14.5); WHITE BLOOD COUNT 4.6 10^3/ul (4.8-10.8)
[2017-04-13 09:57] LABS: CALCIUM 9.5 mg/dl (8.4-10.2); CREATININE 0.98 mg/dl (0.44-1.00); POTASSIUM 4.2 mmol/L (3.5-5.1)
--- NOTE | 2017-04-13 12:07 | PN ---
Date/Time of Note Date/Time of Note DATE: 04/13/17 TIME: 12:03 Assessment/Plan VTE Prophylaxis VTE Prophylaxis Intervention: LMWH Lines/Catheters IV Catheter Type (from Nrs): Saline Lock Urinary Cath still in place: No Assessment/Plan Assessment/Plan A: dizziness - ?vertigo, resolved. MRI negative for mass or stroke cp resolved CM DM P: will discuss with cards, hopefully can d/c home discussed with Dr. King after pt seen d/c home, cont outpt meds with carved 9.37 bid, aldactone 12.5 daily, mag ox 400mg daily f/u with cards in 1wk, with me in 1wk Subjective 24 Hr Interval Summary Free Text/Dictation Pt feeling better, no dizziness, cp, sob. Had MRI yesterday. Spoke with pt's nurse carvedilol verified 3.125mg. Exam/Review of Systems Vital Signs Vitals Vital Signs Date Time Temp Pulse Resp B/P Pulse Ox O2 Delivery O2 Flow Rate FiO2 04/13/17 11:57 98.1 58 20 115/62 98 04/13/17 04:00 Room Air Intake and Output 04/12/17 04/12/17 04/13/17 15:00 23:00 07:00 Intake Total 400 ml 500 ml Balance 400 ml 500 ml Exam gen- nad, nontoxic lungs- CTA heart- RRR with occ early beat. abd- +BS, soft ext- no cce. Results Result Diagram: 04/13/17 0804 04/13/17 0804 Results 24 hrs Laboratory Tests Test 04/12/17 14:58 04/12/17 18:14 04/12/17 21:16 04/13/17 02:12 Troponin I < 0.012 Bedside Glucose 247 H 214 200 Test 04/13/17 07:53 04/13/17 08:04 Bedside Glucose 198 White Blood Count 4.6 L Red Blood Count 4.23 Hemoglobin 11.8 L Hematocrit 34.4 L Mean Corpuscular Volume 81.3 L Mean Corpuscular Hemoglobin 27.9 L Mean Corpuscular Hemoglobin Concent 34.3 Red Cell Distribution Width 14.3 Platelet Count 199 Mean Platelet Volume 12.0 H Neutrophils % 44.8 Lymphocytes % 44.8 Monocytes % 7.2 Eosinophils % 2.4 Basophils % 0.4 Nucleated Red Blood Cells % 0.0 Neutrophils # 2.1 Lymphocytes # 2.1 Monocytes # 0.3 Eosinophils # 0.1 Basophils # 0.0 Nucleated Red Blood Cells # 0.0 Sodium Level 141 Potassium Level 4.2 Chloride Level 105 Carbon Dioxide Level 26 Anion Gap 14 Blood Urea Nitrogen 14 Creatinine 0.98 Glucose Level 182 Calcium Level 9.5 Medications Medications Current Medications Ascorbic Acid (Vitamin C) 1,000 mg DAILY PO Last administered on 04/13/17 08: 26; Admin Dose 1,000 MG; Start 04/12/17 at 09:00 Aspirin (Halfprin) 81 mg DAILY PO Last administered on 04/13/17 08:27; Admin Dose 81 MG; Start 04/12/17 at 09:00 Benazepril HCl (Lotensin) 20 mg DAILY PO Last administered on 04/13/17 08:27 ; Admin Dose 20 MG; Start 04/12/17 at 09:00 Cholecalciferol (Vitamin D) 2,000 unit BID PO Last administered on 04/13/17 08:; Admin Dose 2,000 UNIT; Start 04/12/17 at 09:00 Dorzolamide/ Timolol (Cosopt) 1 drop BID BOTH EYES Last administered on 08:25; Admin Dose 1 DROP; Start 04/12/17 at 09:00 EZETIMIBE (Zetia) 10 mg DAILY PO Last administered on 04/13/17 08:25; Admin Dose 10 MG; Start 04/12/17 at 09:00 Folic Acid (Folic Acid) 1 mg DAILY PO Last administered on 04/13/17 08:27; Admin Dose 1 MG; Start 04/12/17 at 09:00 Spironolactone (Aldactone) 12.5 mg BID PO Last administered on 04/13/17 08:26 ; Admin Dose 12.5 MG; Start 04/11/17 at 23:00 Latanoprost (Xalatan) 1 drop HS BOTH EYES Last administered on 04/12/17 21:20 ; Admin Dose 1 DROP; Start 04/12/17 at 21:00 Atorvastatin Calcium (Lipitor) 5 mg QHS PO Last administered on 04/12/17 21: 18; Admin Dose 5 MG; Start 04/12/17 at 21:00 Diagnostic Test (Pha) (Accu-Chek) 1 ea 02 XX Last administered on 04/13/17 02 :09; Admin Dose 1 EA; Start 04/12/17 at 02:00 Patient Own Medication 2 ea BID PO Last administered on 04/13/17 08:28; Admin Dose 2 EA; Start 04/12/17 at 21:00 Enoxaparin Sodium (Lovenox) 40 mg DAILY SC Last administered on 04/13/17 08: 30; Admin Dose 40 MG; Start 04/13/17 at 09:00 Carvedilol (Coreg) 6.25 mg BID PO Last administered on 04/13/17 08:27; Admin Dose 6.25 MG; Start 04/12/17 at 14:30 POLLO GUERRA MD Apr 13, 2017 12:07
--- NOTE | 2017-04-13 13:16 | CONS ---
Date/Time of Note Date/Time of Note DATE: 04/13/17 TIME: 13:08 Assessment/Plan Assessment/Plan Additional Assessment/Plan # Dizziness- Probable orthostatic changes. However pt's medications were also changed likely by error. Possible syx secondary to increase in PVCs as BB was decreased. # DCM with chronic stable systolic CHF HFrEF; pt undergoing medication titration and reassessment to determine need for ICD # HTN # HL >> follow up orthostatic vitals >> resume higher dose of carvedilol and titrate up- 9.37 BID then 12.5 BID and back to 12.5/25 if tolerated. >> add Magnesium Oxide 400 mg daily for PVCs >> decrease aldactone to once a day to avoid hypovolemia. >> continue on remainder of meds >> CHF education >> continue CHF treatment with primary cardiology including possible ICD implantation if EF remains low >> recommend revisit primary cardiology in 1 week >> ok for discharge today. >> d/w Dr Mullen Consultation Date/Type/Reason Admit Date/Time Apr 11, 2017 at 15:16 Initial Consult Date 04/11/17 Type of Consultation: Cardiology 24 HR Interval Summary Free Text/Dictation Pt feels well and has no dizziness. No CP or SOB. Constitutional: improved Exam/Review of Systems Vital Signs Vitals Vital Signs Date Time Temp Pulse Resp B/P Pulse Ox O2 Delivery O2 Flow Rate FiO2 04/13/17 12:10 74 04/13/17 11:57 98.1 20 115/62 98 04/13/17 04:00 Room Air Intake and Output 04/12/17 04/12/17 04/13/17 15:00 23:00 07:00 Intake Total 400 ml 500 ml Balance 400 ml 500 ml Exam Constitutional: alert, oriented, well developed Psych: no complaints Head: normocephalic Eyes: nl conjunctiva, nl lids ENMT: mucosa pink and moist, nl external ears & nose, nl nasal mucosa & septum Neck: supple, No jvd Respiratory: clear to auscultation, normal air movement Cardiovascular: other (ectopic beats), regular rate and rhythm, No murmurs/extra sounds Gastrointestinal: non-tender, soft Extremities: normal pulses, No edema Results Result Diagram: 04/13/17 0804/13/17 08 Results 24 hrs Laboratory Tests Test 04/12/17 14:58 04/12/17 18:14 04/12/17 21:16 04/13/17 02:12 Troponin I < 0.012 Bedside Glucose 247 H 214 200 Test 04/13/17 07:53 04/13/17 08:04 04/13/17 12:35 Bedside Glucose 198 181 White Blood Count 4.6 L Red Blood Count 4.23 Hemoglobin 11.8 L Hematocrit 34.4 L Mean Corpuscular Volume 81.3 L Mean Corpuscular Hemoglobin 27.9 L Mean Corpuscular Hemoglobin Concent 34.3 Red Cell Distribution Width 14.3 Platelet Count 199 Mean Platelet Volume 12.0 H Neutrophils % 44.8 Lymphocytes % 44.8 Monocytes % 7.2 Eosinophils % 2.4 Basophils % 0.4 Nucleated Red Blood Cells % 0.0 Neutrophils # 2.1 Lymphocytes # 2.1 Monocytes # 0.3 Eosinophils # 0.1 Basophils # 0.0 Nucleated Red Blood Cells # 0.0 Sodium Level 141 Potassium Level 4.2 Chloride Level 105 Carbon Dioxide Level 26 Anion Gap 14 Blood Urea Nitrogen 14 Creatinine 0.98 Glucose Level 182 Calcium Level 9.5 Medications Medications Current Medications Ascorbic Acid (Vitamin C) 1,000 mg DAILY PO Last administered on 04/13/17 08: 26; Admin Dose 1,000 MG; Start 04/12/17 at 09:00 Aspirin (Halfprin) 81 mg DAILY PO Last administered on 04/13/17 08:27; Admin Dose 81 MG; Start 04/12/17 at 09:00 Benazepril HCl (Lotensin) 20 mg DAILY PO Last administered on 04/13/17 08:27 ; Admin Dose 20 MG; Start 04/12/17 at 09:00 Cholecalciferol (Vitamin D) 2,000 unit BID PO Last administered on 04/13/17 08:26; Admin Dose 2,000 UNIT; Start 04/12/17 at 09:00 Dorzolamide/ Timolol (Cosopt) 1 drop BID BOTH EYES Last administered on 08:25; Admin Dose 1 DROP; Start 04/12/17 at 09:00 EZETIMIBE (Zetia) 10 mg DAILY PO Last administered on 04/13/17 08:25; Admin Dose 10 MG; Start 04/12/17 at 09:00 Folic Acid (Folic Acid) 1 mg DAILY PO Last administered on 04/13/17 08:27; Admin Dose 1 MG; Start 04/12/17 at 09:00 Spironolactone (Aldactone) 12.5 mg BID PO Last administered on 04/13/17 08:26 ; Admin Dose 12.5 MG; Start 04/11/17 at 23:00 Latanoprost (Xalatan) 1 drop HS BOTH EYES Last administered on 04/12/17 21:20 ; Admin Dose 1 DROP; Start 04/12/17 at 21:00 Atorvastatin Calcium (Lipitor) 5 mg QHS PO Last administered on 04/12/17 21: 18; Admin Dose 5 MG; Start 04/12/17 at 21:00 Diagnostic Test (Pha) (Accu-Chek) 1 ea 02 XX Last administered on 04/13/17 02 :09; Admin Dose 1 EA; Start 04/12/17 at 02:00 Patient Own Medication 2 ea BID PO Last administered on 04/13/17 08:28; Admin Dose 2 EA; Start 04/12/17 at 21:00 Enoxaparin Sodium (Lovenox) 40 mg DAILY SC Last administered on 04/13/17 08: 30; Admin Dose 40 MG; Start 04/13/17 at 09:00 Carvedilol (Coreg) 6.25 mg BID PO Last administered on 04/13/17 08:27; Admin Dose 6.25 MG; Start 04/12/17 at 14:30 FAITH STILES MD Apr 13, 2017 13:16
[2017-04-13] MEDS ORDERED: MAGNESIUM OXIDE 400 MG TAB PO SCH (13:30)
--- NOTE | 2017-04-13 18:57 | PDOCDIS ---
Discharge Instructions CONDITION Patient Condition: Good HOME CARE INSTRUCTIONS: Special Diet: 1800 issac FOLLOW UP/APPOINTMENTS Follow-up Plan with cardiology in 1wk with Dr. Guerra in 1wk POLLO GUERRA MD Apr 13, 2017 18:57
[2017-04-13] MEDS ORDERED: SPIR25TA PO (19:01)
[2017-04-13] MEDS ORDERED: CARV6.2579 PO (19:01)
--- NOTE | 2017-04-14 08:26 | DS ---
DATE OF ADMISSION: 04/11/2017 DATE OF DISCHARGE: 04/13/2017 DISCHARGE DIAGNOSES: 1. Chest pain, atypical, ruled out for myocardial infarction. 2. Dizziness, likely vertigo. 3. Diabetes. 4. Cardiomyopathy. PROCEDURES: MRI of the brain. CONSULTANTS: Cardiology Dr. Marcelino. HISTORY OF PRESENT ILLNESS: The patient is a 62-year-old black female with history of nonischemic c ardiomyopathy complained of dizziness which she attributes to a recent change in her carvedilol. Eliot mckenna got new tablets which were labeled as 3.125 mg. She was taking 2 twice a day. The patient was co ncerned that medication she received was not carvedilol because it looked different. Patient recent ly filled the prescription 4 days prior to admission and the day after is when she noted dizziness w hich she described as being out of balance when she stood up. The episode lasted a few minutes, im proved when she sat down. Denies any recent illnesses, congestion, rhinorrhea, sore throat, focal n eurologic symptoms, nausea, vomiting, tinnitus, hearing loss. Patient has had some mild diffuse hea dache. The morning of admission, the patient reported to have some left-sided chest pain, crampy, 2 /10 in severity which began when she was moving around, getting some things together at home. The p atient states that it resolved after she sat down, lasted a duration of 1 to 2 minutes. No radiatio n, no associated symptoms. No palpitations, shortness of breath, cough. Patient had no further epi sodes of chest pain. Of note, the patient had a recent negative angiogram through [facility] in October which showed no significant coronary artery disease. The patient was admitted to [facility] and is admitted for further evaluation. PHYSICAL EXAMINATION ON ADMISSION: VITAL SIGNS: Notable for a temperature 98.4, pulse 95, blood pressure 126/57, pulse ox 98%. GENERAL APPEARANCE: Well-developed, well-nourished black female. She was in no acute distress. Eliot mckenna appeared nontoxic. HEENT: Normocephalic, atraumatic. TMs are clear. Oropharynx is clear. NECK: Supple, no adenopathy, no bruits. LUNGS: Clear to auscultation. CARDIAC: Regular rate and rhythm with frequent PVCs. NEUROLOGIC: The patient is alert and oriented x3 with no focal neurologic findings. DATA: On admission notable for EKG shows sinus rhythm at 89 with frequent PVCs. Chest x-ray showed no acute disease. White count was 6.3, hemoglobin 12.9, platelets 222. Sodium was 144, potassium 4.6, BUN 15, creatinine 0.92, glucose 185. Magnesium was 2. Troponin less than 0.012. HOSPITAL COURSE: 1. Chest pain. The patient had a brief isolated episode which resolved by the time she presented t o the ER. Patient did have a recent cardiac catheterization at [facility], which was negative for signifi cant coronary artery disease. Troponins were negative. The patient was seen in cardiology consulta tion by Dr. Marcelino who felt that this was noncardiac in origin. She was continued on her outpatient meds. 2. Dizziness. Patient with imbalance feeling on standing. No focal neurologic findings. Some mil d headache. She did have an MRI of the brain which did not show any mass or hemorrhage or any evide nce of CVA. The patient's symptoms resolved during hospitalization without any specific therapy. 3. Cardiomyopathy. Patient with nonischemic cardiomyopathy. She had a recent adjustment in her ca rvedilol, was titrated up, which she tolerated and she will continue at carvedilol dose of 9.375 twi ce a day. Aldactone was decreased to 12.5 daily and magnesium oxide was added. 4. Diabetes. The patient's oral antidiabetic medications were held. The patient was put on slidin g scale of insulin. She will be converted back to her oral hypoglycemics at time of discharge. Discharge patient home. CONDITION: Improved. MEDICATIONS: 1. Mag oxide 400 mg daily. 2. Carvedilol 9.375 b.i.d. 3. Aldactone 12.5 mg daily. 4. Simvastatin 20 mg daily. 5. Xalatan eyedrops. 6. Vitamin C. 7. Aspirin 81 mg daily. 8. Benazepril 20 mg daily. 9. Vitamin D. 10. Cosopt eyedrops. 11. Zetia 10 mg daily. 12. Folic acid 1 mg daily. FOLLOWUP: The patient is to follow up with cardiology in 1 week and with myself in 1 week. Dictated By: POLLO HARP/DAVID Conf#: [id number] [facility]#: [id number]
[2017-04-14] MEDS ORDERED: SPIRONOLACTONE 25 MG TAB PO SCH (09:00)
== END 2017-04-13 20:11 | disposition home or self-care (01) ==
LOC: E/R 09:32 → TEL 15:16
PROVIDERS: ADMIT Internal Medicine; ATTEND Internal Medicine
DX: R07.89 Other chest pain (principal); R42 Dizziness and giddiness; E11.9 Type 2 diabetes mellitus without complications; I42.9 Cardiomyopathy, unspecified; E78.5 Hyperlipidemia, unspecified; I11.0 Hypertensive heart disease with heart failure; I50.22 Chronic systolic (congestive) heart failure; M06.9 Rheumatoid arthritis, unspecified; Z79.82 Long term (current) use of aspirin; Z79.84 Long term (current) use of oral hypoglycemic drugs; Z82.3 Family history of stroke; Z83.3 Family history of diabetes mellitus
CPT/HCPCS: 36415; 70552; 71010; 77021; 80048; 80053; 80061; 82550; 82553; 82962; 83036; 83735; 84443; 84484; 85025; 93005; G0378; J1650; J1815; J7040

== ENCOUNTER 2018-06-14 20:04 | Observation (INO) | payer MEDICARE, OTHER ==
[~2018-06-14] VITALS: Ht 182.9 cm; Wt 104.8 kg
[~2018-06-14 20:04] MED LIST changes: -AMLO5TAB4 PO; +ASCO500C7 PO; +ASPI81TA52 PO; +BENA20TA4 PO; -BENA20TA48 PO; -CANA100T PO; +CANA300T PO; +CARV6.2579 PO; +CHOL100062 PO; -ERGO500014 PO; -EZET10TA3 PO; +EZET10TA31 PO; -HYDR25TA6 PO; -IBUP-1542 PO; +METF100010 PO; -METF500T4 PO; +MULT-853 PO; -REPA2TAB6 PO; +REPA2TAB8 PO; +SIMV10TA PO; +SITA100T11 PO; -SITA100T8 PO; +SPIR25TA PO
--- NOTE | 2018-06-14 22:47 | ERD ---
ER Documentation Chief Complaint Chief Complaint C/O CP SINCE SINCE 1300 HPI The patient is a 63-year-old female, presenting to the ER because of left-sided chest pain that began around 1 PM for approximately 45 minutes while she was sitting down, recurred around 7 PM again while she was sitting down, she then took 2 Aleve with minimal response; she therefore came to the emergency department. She denies chest pain with vomiting/radiation/exertion/paralysis, dyspnea, abdominal pain, vomiting, dizzy, diarrhea. She does not smoke nor drink Past medical history: History current myopathy, diabetes mellitus, dyslipidemia, hypertension, history of CHF, rheumatoid arthritis, glaucoma Past surgical history: , appendectomy ROS All systems reviewed and are negative except as per history of present illness. Medications Home Meds Active Scripts Spironolactone* (Aldactone*) 25 Mg Tablet, 12.5 MG PO DAILY for 30 Days, #30 TAB Prov:POLLO GUERRA MD 04/13/17 Carvedilol* (Carvedilol*) 6.25 Mg Tablet, 9.375 MG PO BID for 30 Days, #100 TAB Prov:POLLO GUERRA MD 04/13/17 Reported Medications Multivits-Min/Iron/FA/Lutein (Centrum Silver Women Tablet) 1 Each Tablet, 1 EACH PO DAILY, TAB 04/11/17 Metformin Hcl* (Metformin Hcl*) 1,000 Mg Tablet, 1000 MG PO BID WITH MEALS, #30 TAB 04/11/17 Simvastatin* (Zocor*) 10 Mg Tablet, 10 MG PO QHS, #30 TAB 04/11/17 Canagliflozin (Invokana) 300 Mg Tablet, 300 MG PO DAILY, TAB 04/11/17 Travoprost* (Travatan Z*) 2.5 Ml Drops, 1 DROP BOTH EYES HS, EA 11/02/14 Dorzolamide-Timolol* (Cosopt*) 2%-0.5% Soln, 1 DROP BOTH EYES BID, BOTTLE 11/02/14 Benazepril Hcl* (Benazepril Hcl*) 20 Mg Tablet, 20 MG PO DAILY, TAB 11/02/14 Folic Acid* (Folic Acid*) 1 Mg Tablet, 1 MG PO DAILY, TAB 11/02/14 Ezetimibe* (Zetia*) 10 Mg Tablet, 10 MG PO DAILY, TAB 11/02/14 Discontinued Reported Medications Aspirin (Low Dose Aspirin) 81 Mg Tablet.dr, 81 MG PO DAILY, #30 TAB 04/11/17 Repaglinide* (Repaglinide*) 2 Mg Tablet, 6 MG PO AC MEALS, TAB 04/11/17 Ascorbic Acid* (Vitamin C*) 500 Mg Capsule.sa, 1000 MG PO DAILY, CAP 04/11/17 Cholecalciferol* (Vitamin D3*) 1,000 Unit Tablet, 2000 UNIT PO BID, TAB 04/11/17 Sitagliptin* (Januvia*) 100 Mg Tablet, 100 MG PO DAILY, TAB 11/02/14 Allergies Allergies: Coded Allergies: No Known Allergies (Verified Allergy, Mild, 06/15/18) PMhx/Soc History of Surgery: Yes (, appendectomy) Anesthesia Reaction: No Hx Neurological Disorder: No Hx Respiratory Disorders: No Hx Cardiac Disorders: Yes (HTN, cardiomyopathy) Hx Psychiatric Problems: No Hx Miscellaneous Medical Probl: No Hx Alcohol Use: No Hx Substance Use: No Hx Tobacco Use: No Physical Exam Vitals Vital Signs Date Temp Pulse Resp B/P (MAP) Pulse Ox O2 O2 Flow FiO2 Time Delivery Rate 06/14/18 97.4 80 19 168/83 100 20:12 (111) Physical Exam Const: No acute distress. Head: Atraumatic. Eyes: Normal Conjunctiva. ENT: Normal External Ears, Nose and Mouth. Neck: Full range of motion. No meningismus. Resp: Clear to auscultation bilaterally. Cardio: Regular rate and rhythm. Abd: Soft, non distended, normal bowel sounds, non tender. Skin: No petechiae or rashes. Back: No midline or flank tenderness. Ext: No cyanosis, or edema. Neur: Awake and alert. No focal deficit Psych: Normal Mood and Affect. Result Diagram: 06/14/18223606/14/182236 Results 24 hrs Laboratory Tests Test 06/14/18 22:37 White Blood Count 6.4 10^3/ul Red Blood Count 4.27 10^6/ul Hemoglobin 11.5 g/dl Hematocrit 35.2 % Mean Corpuscular Volume 82.4 fl Mean Corpuscular Hemoglobin 26.9 pg Mean Corpuscular Hemoglobin Concent 32.7 g/dl Red Cell Distribution Width 13.9 % Platelet Count 215 10^3/UL Mean Platelet Volume 11.1 fl Immature Granulocytes % 0.300 % Neutrophils % 48.9 % Lymphocytes % 41.1 % Monocytes % 6.6 % Eosinophils % 2.5 % Basophils % 0.6 % Nucleated Red Blood Cells % 0.0 /100WBC Immature Granulocytes # 0.020 10^3/ul Neutrophils # 3.1 10^3/ul Lymphocytes # 2.6 10^3/ul Monocytes # 0.4 10^3/ul Eosinophils # 0.2 10^3/ul Basophils # 0.0 10^3/ul Nucleated Red Blood Cells # 0.0 10^3/ul Prothrombin Time 12.4 Sec Prothrombin Time Ratio 1.0 INR International Normalized Ratio 0.91 Activated Partial Thromboplast Time 29.7 Sec Sodium Level 138 mmol/L Potassium Level 4.8 mmol/L Chloride Level 102 mmol/L Carbon Dioxide Level 28 mmol/L Anion Gap 8 Blood Urea Nitrogen 19 mg/dl Creatinine 0.94 mg/dl Est Glomerular Filtrat Rate mL/min > 60 mL/min Glucose Level 268 mg/dl Calcium Level 10.1 mg/dl Troponin I < 0.012 ng/ml B-Type Natriuretic Peptide 470 PG/ML Current Medications Medications Dose Sig/Matilda Start Time Status Last (Trade) Ordered Route PRN Stop Time Admin Dose Reason Admin Aspirin 325 mg ONCE STAT 06/14/18 DC 06/14/18 (Aspirin) PO 23:05 23:18 06/14/18 23:07 1 inch ONCE STAT 06/14/18 DC 06/14/18 Nitroglycerin TD 23:05 23:18 06/14/18 23:07 (Nitroglyceri n 2% Oint) Procedures/MDM Portable chest x-ray per radiologist negative for any acute abnormality EKG: Read by emergency physician Rate/Rhythm: Normal Sinus Rhythm 80 beats per min QRS, ST, T-waves: No ST elevation, no T wave inversion, sinus arrhythmia, low voltage Impression: Abnormal EKG MEDICAL MAKING DECISION: The patient is a 63-year-old female with multiple cardiac risk factor, presenting with acute chest pain that is concerning for acute ACS, was treated with aspirin 325 mg p.o. and 1 inch of nitroglycerin ointment to the chest wall with good response The differential diagnoses considered include but are not limited to acute coronary syndrome, acute myocardial infarction, pericarditis, pulmonary embolism, aortic dissection, pneumonia, pleural effusion, pneumothorax, GERD, chest wall pain. Departure Diagnosis: Primary Impression: Chest pain Additional Impressions: Anemia Hyperglycemia Condition: Stable Comments I discussed the findings with the patient. I discussed the patient with her physician Dr Guerra at 1:15am. who was made aware of the lab, the treatment, the patient condition. The patient is admitted to [facility]. We left a message for supervisor detasseling crew Dr King as Dr Guerra request Disclaimer: Inadvertent spelling and grammatical errors are likely due to EHR/dictation software use and do not reflect on the overall quality of patient care. Also, please note that the electronic time recorded on this note does not necessarily reflect the actual time of the patient encounter. ALFREDO LANDIN MD Jun 14, 2018 22:47
[2018-06-14] MEDS ORDERED: ASPIRIN 325 MG TAB PO STA (23:05)
[2018-06-14] MEDS ORDERED: NITROGLYCERIN 2% 1 GM OINT PKT TD STA (23:05)
[2018-06-15] VITALS (11 sets, daily range): BP systolic 112–136; BP diastolic 66–80; PULSE 70–90; RESP 18–20; Ht 182.9 cm; Wt 104.8 kg
[2018-06-15] MEDS ORDERED: DEXTROSE 50% 50 ML SYRINGE IV PRN ×2 (04:00)
[2018-06-15] MEDS ORDERED: GLUCOSE GEL 15 GRAM TUBE PO PRN ×2 (04:00)
[2018-06-15] MEDS ORDERED: GLUCOSE GEL 15 GRAM TUBE BUCCAL PRN (04:00)
[2018-06-15] MEDS ORDERED: GLUCAGON 1 MG INJ IM PRN (04:00)
[2018-06-15] MEDS ORDERED: ACETAMINOPHEN 325 MG TAB PO PRN (04:00)
[2018-06-15] MEDS ORDERED: CARV12.579 PO (05:56)
[2018-06-15] MEDS: FOLIC ACID 1 MG TAB PO SCH (08:11)
[2018-06-15] MEDS: BENAZEPRIL 20 MG TAB PO SCH (08:11)
[2018-06-15] MEDS: DORZOLAMIDE/TIMOLOL 10 ML OPH BOTH EYES SCH ×2 (08:11→21:11)
[2018-06-15] MEDS: EZETIMIBE 10 MG TAB PO SCH (08:11)
[2018-06-15] MEDS: INSULIN ASPART [NOVOLOG] 3 ML PEN SC SCH ×4 (08:14→21:41)
[2018-06-15] MEDS: ENOXAPARIN 40 MG/0.4 ML SYG SC SCH (08:15)
[2018-06-15] MEDS ORDERED: NON-FORMULARY/PATIENT OWN MED (Canagliflozin (Invokana) 300 MG) PO SCH (09:00)
[2018-06-15] MEDS: MULTIVITAMINS/MINERALS TAB PO SCH (10:15)
--- NOTE | 2018-06-15 14:10 | HP ---
DATE OF ADMISSION: 06/15/2018 CHIEF COMPLAINT: Chest pain. HISTORY OF PRESENT ILLNESS: The patient is a 63-year-old -Scottish female with history of car diomyopathy, who developed midsternal chest pain the day prior to admission initially in the early af ternoon while sitting lasted about 45 minutes associated with some mild shortness of breath and possi yolanda some mild lightheadedness. The patient was otherwise feeling well. Episode repeated in the even ing again while sitting. She took Aleve without benefit. Subsequently, she presented to the ER. Th e patient reports the chest pain as pressure-like, mild, episodic with some mild shortness of breath, lightheadedness, no radiation. The patient denies any cough, fever, chills, night sweats and no rec ent injury or illness. The patient reports symptoms are worsening with her walking or sitting. In t he ER, the patient was given nitroglycerin paste and aspirin. Eventually, symptoms resolved and the patient currently is pain-free. The patient is admitted for further management. PAST MEDICAL HISTORY: Diabetes, cardiomyopathy, hypertension, hyperlipidemia, rheumatoid arthritis, glaucoma and history of CHF. OPERATIONS: , appendectomy, cataracts. MEDICATIONS: 1. Invokana 300 mg daily. 2. Benazepril 20 mg daily. 3. Norvasc 5 mg daily. 4. Aspirin 81 mg daily. 5. Dorzolamide eyedrops. 6. Travatan eyedrops. 7. Spironolactone 12.5 mg daily. 8. Trulicity once a week. 9. Magnesium 400 mg daily. 10. Zetia 10 mg daily. 11. Metformin 1000 mg b.i.d. 12. Carvedilol 37.5 mg b.i.d. ALLERGIES: THE PATIENT HAS NO KNOWN DRUG ALLERGIES. SOCIAL HISTORY: No tobacco or alcohol use. She is single. She has a caregiver. FAMILY HISTORY: The patient's father at 60 from CVA. Mother at 56 from diabetes complicat ions. The patient has had 6 brothers, 4 with heart disease, diabetes. Two brothers living with diabetes, has had 2 sisters of cardiac disease and 2 daughters who are alive and well. REVIEW OF SYSTEMS: GENERAL: The patient denies any fever, chills, night sweats, other general complaints. HEENT: The patient had some mild headache after getting nitro paste but no congestion, rhinorrhea, s ore throat or other HEENT complaints. RESPIRATORY: As noted in HPI. CARDIOVASCULAR: As noted in HPI. GASTROINTESTINAL: The patient denies any abdominal pain, nausea, vomiting, bright red blood per rect um, melena or other GI symptoms. GENITOURINARY: The patient denies any dysuria, frequency or other symptoms. NEUROLOGIC: The patient denies any numbness, tingling, weakness or other neurologic symptoms. PHYSICAL EXAMINATION: VITAL SIGNS: Temperature 98.4, pulse is 90, blood pressure 122/70, pulse ox 98% on room air. GENERAL APPEARANCE: This is a well-developed, well-nourished black female in no acute distress. She appears nontoxic. HEENT: Normocephalic, atraumatic. Sclerae are anicteric. Oropharynx is clear. NECK: Supple. No adenopathy, no bruits. LUNGS: Clear to auscultation. CARDIAC: Regular rate and rhythm. There is no reproducible pain to palpation. ABDOMEN: Bowel sounds are present. Abdomen is soft, nontender, nondistended. EXTREMITIES: Without cyanosis, clubbing or edema. NEUROLOGIC: The patient is alert and oriented x3 with no focal neurologic findings. DIAGNOSTIC DATA: EKG shows no acute changes. LABORATORY DATA: White count 6.4, hemoglobin 11.5, platelets 215. Sodium 138, potassium 4.8, chlori de 102, bicarbonate 28, BUN 19, creatinine 0.94, glucose 268. Troponin is less than 0.012. INR 0.91 , PTT 29.7. Repeat troponin is also less than 0.012. IMPRESSION: 1. Chest pain. The patient with multiple cardiac risk factors including history of cardiomyopathy. The patient is currently pain-free. Troponins are so far negative. 2. Poorly controlled diabetes. 3. Cardiomyopathy. The patient with a history of cardiomyopathy, followed locally in [facility]. 4. Hypertension. PLAN: Admit to telemetry. Serial cardiac enzymes. Monitor labs. Continue aspirin, statin, beta bl ockers, AUDRA inhibitor. Cardiology evaluation. Continue other management. Sliding scale of NovoLog. Monitor labs. Dictated By: POLLO HARP/DAVID Conf#: [id number] DID#: [id number]
[2018-06-15] MEDS: ASPIRIN (EC) 81 MG TAB PO SCH (14:26)
[2018-06-15] MEDS ORDERED: ATORVASTATIN 40 MG TAB PO SCH ×2 (21:00)
[2018-06-15] MEDS ORDERED: LATANOPROST 0.005% 2.5 ML OPH BOTH EYES SCH (21:00)
[2018-06-16] VITALS (9 sets, daily range): BP systolic 109–132; BP diastolic 65–87; PULSE 71–79; RESP 17–18
[2018-06-16] MEDS ORDERED: ACCU-CHEK XX SCH (02:00)
[2018-06-16] MEDS: EZETIMIBE 10 MG TAB PO SCH (08:22)
[2018-06-16] MEDS: ASPIRIN (EC) 81 MG TAB PO SCH (08:24)
[2018-06-16] MEDS: DORZOLAMIDE/TIMOLOL 10 ML OPH BOTH EYES SCH (08:25)
[2018-06-16] MEDS: BENAZEPRIL 20 MG TAB PO SCH (08:25)
[2018-06-16] MEDS: MULTIVITAMINS/MINERALS TAB PO SCH (08:25)
[2018-06-16] MEDS: FOLIC ACID 1 MG TAB PO SCH (08:25)
[2018-06-16] MEDS ORDERED: SPIRONOLACTONE 25 MG TAB PO SCH (09:00)
[2018-06-16] MEDS: INSULIN ASPART [NOVOLOG] 3 ML PEN SC SCH ×2 (09:37→12:17)
[2018-06-16] MEDS: ENOXAPARIN 40 MG/0.4 ML SYG SC SCH (09:37)
--- NOTE | 2018-06-16 10:31 | CONS ---
Assessment/Plan Assessment/Plan Hospital Course (Demo Recall) 1. Chest pain- atypical, r/o for acs. has previous negative cath. symptoms resolved. suspect more related to anxiety/stress 2. NSVT- known recurrent NSVT on outpt eval, negative previous cath, cont beta lavinia. has f/u with [facility] for ICD consideration 3. CM- cont meds, no clnical e/o CHF. bnp mildly elevated likely chronic. Consultation Date/Type/Reason Admit Date/Time Jun 15, 2018 at 01:18 Date of Consultation: Jun 16, 2017 Type of Consult Cardiology Reason for Consultation Chest pain Requesting Provider: POLLO GUERRA MD Date/Time of Note DATE: 06/16/18 TIME: 10:19 Hx of Present Illness 63-year-old -Israeli female with history of NICM EF 30% followed with Dr. Marcelino and at [facility], h/o normal cors on [facility] 2016 who presented to [facility] for 1 day of chest pain. has been under great stress with passing of her friend recently. had been in stressful situation and started having chest discomfort pressure mid chest with mild dizziness wed lasted a few hours then had recurrence yesterday. did have mild nausea, no vomitting. no sob she reports, no pnd, orthopnea, edema. no syncope. pt states in hospital symptoms resolved, did have brief run of WCT 2 seconds while sleeping, no symptoms last night. baseline pt is able to walk and do all activities no cp/sob. currently has appointment at [facility] to discuss possible ICD. all other systems negative Past Medical History Cardiomyopathy (I42.9) Chest pain (R07.9) Diabetes mellitus (E11.9) Dizziness (R42) Edema (R60.9) Essential hypertension (I10) Glaucoma (H40.9) Hyperlipidemia (E78.5) Obesity (E66.9) Rheumatoid arthritis (M06.9) Shortness of breath (R06.02) Ventricular tachycardia (I47.2) Nonsustained VT in 2009 with normal coronaries by Cath. Past Medical History History of delivery delivered (O82) Surgical History History of Appendectomy History of Section Social History Being A Social Drinker Marital History - Single Never smoker Non-smoker (Z78.9) Not Currently Employed Family History Family history of Diabetes Mellitus Family history of Stroke Syndrome Family history of Acute Myocardial Infarction of [place] at age 45 Family history of Acute Myocardial Infarction of [place] at age 57 Home Meds Active Scripts Spironolactone* (Aldactone*) 25 Mg Tablet, 12.5 MG PO DAILY for 30 Days, #30 TAB Prov:POLLO GUERRA MD 04/13/17 Carvedilol* (Carvedilol*) 6.25 Mg Tablet, 9.375 MG PO BID for 30 Days, #100 TAB Prov:POLLO GUERRA MD 04/13/17 Reported Medications Carvedilol* (Carvedilol*) 12.5 Mg Tablet, 37.5 MG PO BID, #60 TAB 06/15/18 Multivits-Min/Iron/FA/Lutein (Centrum Silver Women Tablet) 1 Each Tablet, 1 EACH PO DAILY, TAB 04/11/17 Metformin Hcl* (Metformin Hcl*) 1,000 Mg Tablet, 1000 MG PO BID WITH MEALS, #30 TAB 04/11/17 Simvastatin* (Zocor*) 10 Mg Tablet, 10 MG PO QHS, #30 TAB 04/11/17 Canagliflozin (Invokana) 300 Mg Tablet, 300 MG PO DAILY, TAB 04/11/17 Travoprost* (Travatan Z*) 2.5 Ml Drops, 1 DROP BOTH EYES HS, EA 11/02/14 Dorzolamide-Timolol* (Cosopt*) 2%-0.5% Soln, 1 DROP BOTH EYES BID, BOTTLE 11/02/14 Benazepril Hcl* (Benazepril Hcl*) 20 Mg Tablet, 20 MG PO DAILY, TAB 11/02/14 Folic Acid* (Folic Acid*) 1 Mg Tablet, 1 MG PO DAILY, TAB 11/02/14 Ezetimibe* (Zetia*) 10 Mg Tablet, 10 MG PO DAILY, TAB 11/02/14 Discontinued Reported Medications Aspirin (Low Dose Aspirin) 81 Mg Tablet.dr, 81 MG PO DAILY, #30 TAB 04/11/17 Repaglinide* (Repaglinide*) 2 Mg Tablet, 6 MG PO AC MEALS, TAB 04/11/17 Ascorbic Acid* (Vitamin C*) 500 Mg Capsule.sa, 1000 MG PO DAILY, CAP 04/11/17 Cholecalciferol* (Vitamin D3*) 1,000 Unit Tablet, 2000 UNIT PO BID, TAB 04/11/17 Sitagliptin* (Januvia*) 100 Mg Tablet, 100 MG PO DAILY, TAB 11/02/14 Medications Current Medications Enoxaparin Sodium (Lovenox) 40 mg DAILY SC Last administered on 06/16/18at 09:37; Admin Dose 40 MG; Start 06/15/18 at 09:00 Acetaminophen (Tylenol Tab) 650 mg Q6H PRN PO MILD PAIN(1-3)OR ELEVATED TEMP Last administered on 06/15/18at 05:48; Admin Dose 650 MG; Start 06/15/18 at 04:00 Diagnostic Test (Pha) (Accu-Chek) 1 ea 02 XX ; Start 06/16/18 at 02:00 Miscellaneous Information 1 ea NOTE XX ; Start 06/15/18 at 04:00 Glucose (Glutose) 15 gm Q15M PRN PO DECREASED GLUCOSE; Start 06/15/18 at 04:00 Glucose (Glutose) 22.5 gm Q15M PRN PO DECREASED GLUCOSE; Start 06/15/18 at 04:00 Dextrose (D50w Syringe) 25 ml Q15M PRN IV DECREASED GLUCOSE; Start 06/15/18 at 04:00 Dextrose (D50w Syringe) 50 ml Q15M PRN IV DECREASED GLUCOSE; Start 06/15/18 at 04:00 Glucagon (Glucagen) 1 mg Q15M PRN IM DECREASED GLUCOSE; Start 06/15/18 at 04:00 Glucose (Glutose) 15 gm Q15M PRN BUCCAL DECREASED GLUCOSE; Start 06/15/18 at 04:00 Benazepril HCl (Lotensin) 20 mg DAILY PO Last administered on 06/16/18at 08:25; Admin Dose 20 MG; Start 06/15/18 at 09:00 Dorzolamide/ Timolol (Cosopt) 1 drop BID BOTH EYES Last administered on 06/16/18at 08:25; Admin Dose 1 DROP; Start 06/15/18 at 09:00 EZETIMIBE (Zetia) 10 mg DAILY PO Last administered on 06/16/18at 08:22; Admin Dose 10 MG; Start 06/15/18 at 09:00 Folic Acid (Folic Acid) 1 mg DAILY PO Last administered on 06/16/18at 08:25; Admin Dose 1 MG; Start 06/15/18 at 09:00 Latanoprost (Xalatan) 1 drop HS BOTH EYES Last administered on 06/15/18 21:11; Admin Dose 1 DROP; Start 06/15/18 at 21:00 Miscellaneous Information 300 mg DAILY PO ; Start 06/15/18 at 09:00; Status UNV Multivitamins/ Minerals (Theragran-M) 1 tab DAILY PO Last administered on 06/16/18 08:25; Admin Dose 1 TAB; Start 06/15/18 at 09:00 Atorvastatin Calcium (Lipitor) 40 mg HS PO Last administered on 06/15/18at 21:12; Admin Dose 40 MG; Start 06/15/18 at 21:00 Carvedilol (Coreg) 37.5 mg BID PO Last administered on 06/16/18 08:24; Admin Dose 37.5 MG; Start 06/15/18 at 09:00 Aspirin (Halfprin) 81 mg DAILY PO Last administered on 06/16/18 08:24; Admin Dose 81 MG; Start 06/15/18 at 13:30 Insulin Aspart (Novolog Insulin Pen) NOVOLOG *MODERATE* ALGORITHM WITH MEALS BEDTIME SC Last administered on 06/16/18 09:37; Admin Dose 6 UNIT; Start 06/15/18 at 18:00 Spironolactone (Aldactone) 12.5 mg DAILY PO Last administered on 06/16/18 08:24; Admin Dose 12.5 MG; Start 06/16/18 at 09:00 Allergies: Coded Allergies: No Known Allergies (Verified Allergy, Mild, 06/15/18) Social History Smoking Status: Never smoker Exam/Review of Systems Exam Vitals Vital Signs Date Temp Pulse Resp B/P (MAP) Pulse Ox O2 O2 Flow FiO2 Time Delivery Rate 06/16/18 79 08:52 06/16/18 98.4 18 128/87 98 07:44 (101) 06/16/18 Room Air 04:08 Intake and Output 06/15/18 06/15/18 06/16/18 1515:00 23:00 07:00 IntakeIntake Total 1200 ml 500 ml BalanceBalance 1200 ml 500 ml Constitutional: alert, oriented Psych: no complaints, nl mood/affect Head: normocephalic, atraumatic Eyes: nl conjunctiva, EOMI, nl lids ENMT: nl external ears & nose, nl lips & teeth, nl nasal mucosa & septum Neck: supple, non-tender; No jvd Respiratory: clear to auscultation, normal air movement Cardiovascular: regular rate and rhythm, nl pulses; No edema, No irregular rhythm, No systolic murmur, No S3, No S4 Gastrointestinal: soft, nl liver, spleen, non-tender Musculoskeletal: nl extremities to inspection, nl gait and stance Extremities: normal pulses Neurological: PHONE SCREENER II-XII intact, nl speech, nl strength Results Result Diagram: 06/16/1851806/16/18518 Results 24hrs Laboratory Tests Test 06/15/18 10:58 06/15/18 12:02 06/15/18 17:16 06/15/18 21:09 Creatine Kinase 40 Creatine Kinase 1.1 Index Creatinine Kinase MB 0.42 (Mass) Troponin I < 0.012 Bedside Glucose 249 H 158 274 H Test 06/16/18 01:19 06/16/18 05:19 06/16/18 07:57 Bedside Glucose 211 234 H White Blood Count 4.9 Red Blood Count 4.14 L Hemoglobin 11.2 L Hematocrit 34.5 L Mean Corpuscular 83.3 Volume Mean Corpuscular 27.1 L Hemoglobin Mean Corpuscular 32.5 Hemoglobin Concent Red Cell 13.7 Distribution Width Platelet Count 193 Mean Platelet Volume 11.2 H Immature 0.400 Granulocytes % Neutrophils % 48.6 Lymphocytes % 40.0 Monocytes % 8.0 Eosinophils % 2.4 Basophils % 0.6 Nucleated Red Blood 0.0 Cells % Immature 0.020 Granulocytes # Neutrophils # 2.4 Lymphocytes # 2.0 Monocytes # 0.4 Eosinophils # 0.1 Basophils # 0.0 Nucleated Red Blood 0.0 Cells # Sodium Level 140 Potassium Level 4.4 Chloride Level 105 Carbon Dioxide Level 29 Anion Gap 6 Blood Urea Nitrogen 18 Creatinine 1.02 H Est Glomerular > 60 Filtrat Rate mL/min Glucose Level 219 Calcium Level 9.4 Imaging Imaging EKG: NSR< poor r wave progression, tw flat lateral leads. unchanged cxr rpoert reviewed in emr Medications Medication Current Medications Enoxaparin Sodium (Lovenox) 40 mg DAILY SC Last administered on 06/16/18at 09:37; Admin Dose 40 MG; Start 06/15/18 at 09:00 Acetaminophen (Tylenol Tab) 650 mg Q6H PRN PO MILD PAIN(1-3)OR ELEVATED TEMP Last administered on 06/15/18at 05:48; Admin Dose 650 MG; Start 06/15/18 at 04:00 Diagnostic Test (Pha) (Accu-Chek) 1 ea 02 XX ; Start 06/16/18 at 02:00 Miscellaneous Information 1 ea NOTE XX ; Start 06/15/18 at 04:00 Glucose (Glutose) 15 gm Q15M PRN PO DECREASED GLUCOSE; Start 06/15/18 at 04:00 Glucose (Glutose) 22.5 gm Q15M PRN PO DECREASED GLUCOSE; Start 06/15/18 at 04:00 Dextrose (D50w Syringe) 25 ml Q15M PRN IV DECREASED GLUCOSE; Start 06/15/18 at 04:00 Dextrose (D50w Syringe) 50 ml Q15M PRN IV DECREASED GLUCOSE; Start 06/15/18 at 04:00 Glucagon (Glucagen) 1 mg Q15M PRN IM DECREASED GLUCOSE; Start 06/15/18 at 04:00 Glucose (Glutose) 15 gm Q15M PRN BUCCAL DECREASED GLUCOSE; Start 06/15/18 at 04:00 Benazepril HCl (Lotensin) 20 mg DAILY PO Last administered on 06/16/18at 08:25; Admin Dose 20 MG; Start 06/15/18 at 09:00 Dorzolamide/ Timolol (Cosopt) 1 drop BID BOTH EYES Last administered on 06/16/18at 08:25; Admin Dose 1 DROP; Start 06/15/18 at 09:00 EZETIMIBE (Zetia) 10 mg DAILY PO Last administered on 06/16/18 08:22; Admin Dose 10 MG; Start 06/15/18 at 09:00 Folic Acid (Folic Acid) 1 mg DAILY PO Last administered on 06/16/18 08:25; Admin Dose 1 MG; Start 06/15/18 at 09:00 Latanoprost (Xalatan) 1 drop HS BOTH EYES Last administered on 06/15/18at 21:11; Admin Dose 1 DROP; Start 06/15/18 at 21:00 Miscellaneous Information 300 mg DAILY PO ; Start 06/15/18 at 09:00; Status UNV Multivitamins/ Minerals (Theragran-M) 1 tab DAILY PO Last administered on 06/16/18at 08:25; Admin Dose 1 TAB; Start 06/15/18 at 09:00 Atorvastatin Calcium (Lipitor) 40 mg HS PO Last administered on 06/15/18 21:12; Admin Dose 40 MG; Start 06/15/18 at 21:00 Carvedilol (Coreg) 37.5 mg BID PO Last administered on 06/16/18 08:24; Admin Dose 37.5 MG; Start 06/15/18 at 09:00 Aspirin (Halfprin) 81 mg DAILY PO Last administered on 06/16/18 08:24; Admin Dose 81 MG; Start 06/15/18 at 13:30 Insulin Aspart (Novolog Insulin Pen) NOVOLOG *MODERATE* ALGORITHM WITH MEALS BEDTIME SC Last administered on 06/16/18 09:37; Admin Dose 6 UNIT; Start 05/27 05/13 at 18:00 Spironolactone (Aldactone) 12.5 mg DAILY PO Last administered on 06/16/18 08:24; Admin Dose 12.5 MG; Start 06/16/18 at 09:00 SEBAS JONAS Jun 16, 2018 10:31
--- NOTE | 2018-06-16 13:42 | PN ---
Date/Time of Note Date/Time of Note DATE: 06/16/18 TIME: 13:38 Assessment/Plan VTE Prophylaxis Risk score (from Nsg)>0 risk: 3 SCD applied (from Ns): No SCD contraindicated: other Pharmacological prophylaxis: LMWH Lines/Catheters IV Catheter Type (from Nrsg): Saline Lock Urinary Cath still in place: No Assessment/Plan Assessment/Plan A: cp cardiomyopathy DM HTN P: d/c home resume outpt meds f/u at [facility] f/u with me in 1 week Result Diagram: 06/16/1851806/16/18518 Results 24hrs Laboratory Tests Test 06/15/18 17:16 06/15/18 21:09 06/16/18 01:19 06/16/18 05:19 Bedside Glucose 158 274 H 211 White Blood Count 4.9 Red Blood Count 4.14 L Hemoglobin 11.2 L Hematocrit 34.5 L Mean Corpuscular 83.3 Volume Mean Corpuscular 27.1 L Hemoglobin Mean Corpuscular 32.5 Hemoglobin Concent Red Cell 13.7 Distribution Width Platelet Count 193 Mean Platelet Volume 11.2 H Immature 0.400 Granulocytes % Neutrophils % 48.6 Lymphocytes % 40.0 Monocytes % 8.0 Eosinophils % 2.4 Basophils % 0.6 Nucleated Red Blood 0.0 Cells % Immature 0.020 Granulocytes # Neutrophils # 2.4 Lymphocytes # 2.0 Monocytes # 0.4 Eosinophils # 0.1 Basophils # 0.0 Nucleated Red Blood 0.0 Cells # Sodium Level 140 Potassium Level 4.4 Chloride Level 105 Carbon Dioxide Level 29 Anion Gap 6 Blood Urea Nitrogen 18 Creatinine 1.02 H Est Glomerular > 60 Filtrat Rate mL/min Glucose Level 219 Calcium Level 9.4 Test 06/16/18 07:57 06/16/18 12:11 Bedside Glucose 234 H 209 Subjective 24 Hr Interval Summary Free Text/Dictation Cardiology consult appreciated. Discussed with Dr. Cobb. Pt okay to be d/c home, has f/u with [facility]. Pt still emotionally up and down due to friend's recent passing. No cp, sob. Wants to go home. Exam/Review of Systems Exam Vitals Vital Signs Date Temp Pulse Resp B/P (MAP) Pulse Ox O2 O2 Flow FiO2 Time Delivery Rate 06/16/18 78 12:16 2/22/19 98.8 17 129/65 98 11:54 (86) 06/16/18 Room Air 04:08 Intake and Output 06/15/18 06/15/18 06/16/18 1515:00 23:00 07:00 IntakeIntake Total 1200 ml 500 ml BalanceBalance 1200 ml 500 ml Exam gen- nad, nontoxic lungs- CTA heart- RRR abd- +BS, soft, nontender ext- no cce. Results Results 24hrs Laboratory Tests Test 06/15/18 17:16 06/15/18 21:09 06/16/18 01:19 06/16/18 05:19 Bedside Glucose 158 274 H 211 White Blood Count 4.9 Red Blood Count 4.14 L Hemoglobin 11.2 L Hematocrit 34.5 L Mean Corpuscular 83.3 Volume Mean Corpuscular 27.1 L Hemoglobin Mean Corpuscular 32.5 Hemoglobin Concent Red Cell 13.7 Distribution Width Platelet Count 193 Mean Platelet Volume 11.2 H Immature 0.400 Granulocytes % Neutrophils % 48.6 Lymphocytes % 40.0 Monocytes % 8.0 Eosinophils % 2.4 Basophils % 0.6 Nucleated Red Blood 0.0 Cells % Immature 0.020 Granulocytes # Neutrophils # 2.4 Lymphocytes # 2.0 Monocytes # 0.4 Eosinophils # 0.1 Basophils # 0.0 Nucleated Red Blood 0.0 Cells # Sodium Level 140 Potassium Level 4.4 Chloride Level 105 Carbon Dioxide Level 29 Anion Gap 6 Blood Urea Nitrogen 18 Creatinine 1.02 H Est Glomerular > 60 Filtrat Rate mL/min Glucose Level 219 Calcium Level 9.4 Test 06/16/18 07:57 06/16/18 12:11 Bedside Glucose 234 H 209 Medications Medication Current Medications Enoxaparin Sodium (Lovenox) 40 mg DAILY SC Last administered on 06/16/18at 09:37; Admin Dose 40 MG; Start 06/15/18 at 09:00 Acetaminophen (Tylenol Tab) 650 mg Q6H PRN PO MILD PAIN(1-3)OR ELEVATED TEMP Last administered on 06/15/18at 05:48; Admin Dose 650 MG; Start 06/15/18 at 04:00 Diagnostic Test (Pha) (Accu-Chek) 1 ea 02 XX ; Start 06/16/18 at 02:00 Miscellaneous Information 1 ea NOTE XX ; Start 06/15/18 at 04:00 Glucose (Glutose) 15 gm Q15M PRN PO DECREASED GLUCOSE; Start 06/15/18 at 04:00 Glucose (Glutose) 22.5 gm Q15M PRN PO DECREASED GLUCOSE; Start 06/15/18 at 04:00 Dextrose (D50w Syringe) 25 ml Q15M PRN IV DECREASED GLUCOSE; Start 06/15/18 at 04:00 Dextrose (D50w Syringe) 50 ml Q15M PRN IV DECREASED GLUCOSE; Start 06/15/18 at 04:00 Glucagon (Glucagen) 1 mg Q15M PRN IM DECREASED GLUCOSE; Start 06/15/18 at 04:00 Glucose (Glutose) 15 gm Q15M PRN BUCCAL DECREASED GLUCOSE; Start 06/15/18 at 04:00 Benazepril HCl (Lotensin) 20 mg DAILY PO Last administered on 06/16/18 08:25; Admin Dose 20 MG; Start 06/15/18 at 09:00 Dorzolamide/ Timolol (Cosopt) 1 drop BID BOTH EYES Last administered on 06/16/18 08:25; Admin Dose 1 DROP; Start 06/15/18 at 09:00 EZETIMIBE (Zetia) 10 mg DAILY PO Last administered on 06/16/18 08:22; Admin Dose 10 MG; Start 06/15/18 at 09:00 Folic Acid (Folic Acid) 1 mg DAILY PO Last administered on 06/16/18 08:25; Admin Dose 1 MG; Start 06/15/18 at 09:00 Latanoprost (Xalatan) 1 drop HS BOTH EYES Last administered on 06/15/18at 21:11; Admin Dose 1 DROP; Start 06/15/18 at 21:00 Miscellaneous Information 300 mg DAILY PO ; Start 06/15/18 at 09:00; Status UNV Multivitamins/ Minerals (Theragran-M) 1 tab DAILY PO Last administered on 06/16/18 08:25; Admin Dose 1 TAB; Start 06/15/18 at 09:00 Atorvastatin Calcium (Lipitor) 40 mg HS PO Last administered on 06/15/18 21:12; Admin Dose 40 MG; Start 06/15/18 at 21:00 Carvedilol (Coreg) 37.5 mg BID PO Last administered on 06/16/18 08:24; Admin Dose 37.5 MG; Start 06/15/18 at 09:00 Aspirin (Halfprin) 81 mg DAILY PO Last administered on 06/16/18at 08:24; Admin Dose 81 MG; Start 06/15/18 at 13:30 Insulin Aspart (Novolog Insulin Pen) NOVOLOG *MODERATE* ALGORITHM WITH MEALS BEDTIME SC Last administered on 06/16/18at 12:17; Admin Dose 4 UNIT; Start 06/15/18 at 18:00 Spironolactone (Aldactone) 12.5 mg DAILY PO Last administered on 06/16/18at 08:24; Admin Dose 12.5 MG; Start 06/16/18 at 09:00 POLLO GUERRA MD Jun 16, 2018 13:42
--- NOTE | 2018-06-16 13:45 | PDOCDIS ---
Discharge Instructions CONDITION [id number] Patient Condition: [id number] Fair FOLLOW UP/APPOINTMENTS Follow-up Plan f/u at [facility] f/u with Dr. Marcelino f/u with Dr. Guerra in 1week POLLO GUERRA MD Jun 16, 2018 13:45
[2018-06-16] MEDS ORDERED: ASPI-1044 PO (13:47)
--- NOTE | 2018-06-17 02:47 | DS ---
DATE OF ADMISSION: 06/15/2018 DATE OF DISCHARGE: 06/16/2018 DISCHARGE DIAGNOSES: 1. Chest pain, ruled out myocardial infarction. 2. Poorly controlled diabetes 3. Cardiomyopathy. 4. Hypertension. PROCEDURES: None. CONSULTANTS: Cardiology, Dr. Cobb. HISTORY OF PRESENT ILLNESS: The patient is a 63-year-old -[place] female with history of car diomyopathy who developed midsternal chest pain the day prior to admission, one in the afternoon and one in the evening, lasting up to about 45 minutes, associated with some shortness of breath, possibl y some lightheadedness. The patient had otherwise been feeling well. Took Aleve without benefit. T he patient presented to the ER. He was given aspirin and some nitroglycerin paste and thought this m ight have helped her some. Denies any recent illness, cough, fever, chills, night sweats or other sy mptoms. Symptoms more at rest. No change with walking. PHYSICAL EXAMINATION ON ADMISSION: VITAL SIGNS: Temperature 98.4, pulse 90, blood pressure 122/70, pulse ox 98% on room air. GENERAL APPEARANCE: The patient was in no acute distress. She appeared nontoxic. LUNGS: Clear to auscultation. CARDIAC: Regular rate and rhythm. EXTREMITIES: Without cyanosis, clubbing, or edema. NEUROLOGIC: The patient was alert and oriented x3 with no focal neurologic findings. DATA: On admission, EKG showed no acute changes. White count 6.4, hemoglobin 11.5. Sodium 138, pot assium 4.8, BUN 19, creatinine 0.94, glucose was 268. Troponin was less than 0.012. HOSPITAL COURSE: 1. Chest pain. The patient ruled out for NV based on cardiac enzymes. The patient's pain improved during hospitalization. The patient was seen in cardiology consult by Dr. Cobb. The patient has had extensive cardiac workup with cardiology and at [facility] which she is being considered for AICD plac ement and discussed with Dr. Cobb who felt it was okay for patient to be discharged home with her follow up with [facility] and locally with cardiology and myself. 2. Cardiomyopathy as noted above. Patient with extensive workup at [facility]. She has a followup coming up shortly which she will maintain. 3. Poorly controlled diabetes. Patient with elevated blood sugars. Her outpatient meds were held. She was put on sliding scale of insulin. She will resume her outpatient meds at time of discharge. Follow up with her director employee communications, Dr. Gallagher. 4. Hypertension, reasonably controlled during hospitalization. Discharge patient home. CONDITION: Fair. MEDICATIONS: 1. Invokana 300 mg daily. 2. Benazepril 20 mg daily. 3. Norvasc 5 mg daily. 4. Aspirin 81 mg daily. 5. Dorzolamide eyedrops. 6. Travatan eyedrops. 7. Spironolactone 12.5 mg daily. 8. Trulicity weekly. 9. Magnesium 400 mg daily. 10. Zetia 10 mg daily. 11. Metformin 1000 mg b.i.d. 12. Carvedilol 37.5 mg b.i.d. FOLLOWUP: The patient is to follow up with [facility] within 1 to 2 weeks. The patient will follow up [facility] Dr. Marcelino in 2 weeks. Follow up with ok in 1 week. Dictated By: POLLO HARP/DAVID Conf#: [id number] DID#: [id number]
== END 2018-06-16 16:43 | disposition home or self-care (01) ==
LOC: E/R 20:04 → 6WM 06-15 01:18
PROVIDERS: ADMIT Internal Medicine; ATTEND Internal Medicine
DX: R07.89 Other chest pain (principal); I11.0 Hypertensive heart disease with heart failure; I50.9 Heart failure, unspecified; E11.65 Type 2 diabetes mellitus with hyperglycemia; I42.9 Cardiomyopathy, unspecified; E78.5 Hyperlipidemia, unspecified; M06.9 Rheumatoid arthritis, unspecified; Z79.82 Long term (current) use of aspirin; Z79.84 Long term (current) use of oral hypoglycemic drugs
CPT/HCPCS: 36415; 71045; 80048; 80053; 80061; 82550; 82553; 82962; 83036; 83880; 84443; 84484; 85025; 85610; 85730; 93005; 99285; G0378; J1650; J1815